=== PATIENT | male | born 1975 | race Caucasian/White ===

== ENCOUNTER 2017-09-18 09:11 | Emergency (ER) | payer MEDICAID ==
[~2017-09-18] VITALS: Ht 188 cm; Wt 134.7 kg
--- OUTSIDE RECORDS SUMMARY | ~2017-09-18 | XMS | Clinical Summary ---
Demographics + + + | Address | [address] | | | [place] [address] | + + + | Home Phone | | + + + | Preferred Language | Unknown | + + + | Marital Status | Single | + + + | Faith Affiliation | CHR | + + + [...] Team Providers + +------+ + | Care Title Vehicle Service Attendant Name | Role | Phone | + +------+ + | No Pcp Per Patient | PP | Unavailable | + +------+ + Source Comments AARON is fully live on both [facility] Ambulatory and [facility] InPatient.[facility] Allergies + + + + + + [...] + + + + + Current Medications No known medications Active Problems Not [...] Pressure | 134/78 | 12/28/2014 9:34 PM PDT | + + + + | Pulse | 58 | 12/28/2014 9:34 PM PDT | + + + + | Temperature | 36.8 C (98.2 F) | 12/28/2014 9:34 PM PDT | + + + + | Respiratory Rate | 16 | 12/28/2014 9:34 PM PDT | + + + + | Oxygen Saturation | 99% | 12/28/2014 9:34 PM PDT | + + + + | Inhaled Oxygen | - | - | | Concentration | | | + + + + | Weight | 124.3 kg (274 lb) | 12/28/2014 2:48 PM PDT | + + + + | Height | - | - | + + + + | Body Mass Index | - | - | + + + + Plan of Treatment + + + + + | Health Maintenance | Due Date | Last Done | Comments | + + + + + | INFLUENZA VACCINE | | | | | (FLU SHOT) | 7 | | | + + + + + Results Not on filefrom Last 3 Months"
--- OUTSIDE RECORDS SUMMARY | ~2017-09-18 | XMS | Clinical Summary ---
Demographics + + + | Address | [address] | | | [place] [address] | + + + | Home Phone | | + + + | Preferred Language | Unknown | + + + | Marital Status | Single | + + + | Episcopalian Affiliation | CHR | + + + [...] Team Providers + +------+ + | Care Push Connector Assembler Name | Role | Phone | + +------+ + | No Pcp Per Patient | PP | Unavailable | + +------+ + Source Comments AARON is fully live on both [facility] Ambulatory and [facility] InPatient.[facility] Allergies + + + + + [...]
[~2017-09-18 09:11] MED LIST: NORCO 5-325 TA1 EACH PO
[2017-09-18] MEDS ORDERED: TYLENOL325 MG PO (09:22)
[2017-09-18] MEDS ORDERED: IBUPROFEN200 M1 PO (09:23)
== END 2017-09-18 10:02 | disposition home or self-care (01) ==
LOC: ED 09:11
DX: S43.402A Unspecified sprain of left shoulder joint, initial encounter (principal); F17.200 Nicotine dependence, unspecified, uncomplicated; Z88.5 Allergy status to narcotic agent; X50.9XXA Other and unspecified overexertion or strenuous movements or postures, initial encounter; Y92.89 Other specified places as the place of occurrence of the external cause
CPT/HCPCS: 99282

== ENCOUNTER 2019-09-23 21:21 | Emergency (ER) | payer OTHER ==
[~2019-09-23] VITALS: Ht 188 cm; Wt 126.5 kg
[~2019-09-23 21:21] MED LIST changes: +IBUPROFEN200 M1 PO; +TYLENOL325 MG PO
== END 2019-09-23 23:01 | disposition home or self-care (01) ==
LOC: ED 21:21
DX: S93.402A Sprain of unspecified ligament of left ankle, initial encounter (principal); X50.9XXA Other and unspecified overexertion or strenuous movements or postures, initial encounter; F17.200 Nicotine dependence, unspecified, uncomplicated; Z88.5 Allergy status to narcotic agent
CPT/HCPCS: 73610; 99283-25

== ENCOUNTER 2019-11-09 19:22 | Emergency (ER) | payer SELFPAY ==
[~2019-11-09] VITALS: Ht 188 cm; Wt 134.7 kg
[2019-11-09] MEDS ORDERED: PENICILLIN V P500 MG PO (20:34)
== END 2019-11-09 20:42 | disposition home or self-care (01) ==
LOC: ED 19:22
DX: K02.9 Dental caries, unspecified (principal); F17.200 Nicotine dependence, unspecified, uncomplicated; Z88.5 Allergy status to narcotic agent
CPT/HCPCS: 99282

== ENCOUNTER 2019-11-23 13:12 | Emergency (ER) | payer BC ==
[~2019-11-23] VITALS: Ht 188 cm; Wt 134.7 kg
--- OUTSIDE RECORDS SUMMARY | ~2019-11-23 | XMS | Clinical Summary ---
Demographics + + + | Address | [address] | | | [place] [address] | + + + | Home Phone | | + + + | Preferred Language | Unknown | + + + | Marital Status | | + + + | Temple Affiliation | Unknown | + + + | Race | Unknown | + + + | Ethnic Group | Unknown | + + + Author + + + | Author | [employer] (Historical as of | | | 03-10-19) | + + + | Organization | [facility] [employer] (Historical as of | | | 03-10-19) | + + + | Address | Unknown | + + + | Phone | Unavailable | + + + Support + + +---------+ + | Name | Relationship | Address | Phone | + + +---------+ + | Dioni,Leticia | ECON | Unknown | | + + +---------+ + Care Team Providers + +------+ + | Care Complaint Clerk Name | Role | Phone | + +------+ + | Dr. Destinee | PP | Unavailable | + +------+ + Allergies + + + + + + | Active Allergy | Reactions | Severity | Noted | Comments | | | | | Date | | + + + + + + | Tramadol | Other (See Comments) | Medium | 03/14/20 | "breathing | | | | | 12 | problems" | + + + + + + Current Medications + + +-------+---------+------+------+-------+ | Prescription | Sig. | Disp. | Refills | Star | End | Statu | | | | | | t | Date | s | | | | | | Date | | | + + +-------+---------+------+------+-------+ | ibuprofen (ADVIL) | Take 200 mg by mouth | | | | | Activ | | 200 MG tablet | every 6 (six) hours | | | | | e | | | as needed for Pain. | | | | | | + + +-------+---------+------+------+-------+ Active Problems Not on file Family History + + +------+ + | Medical History | Relation | Name | Comments | + + +------+ + | Heart disease | Maternal | | | | | Grandfath | | | | | er | | | + + +------+ + + +------+--------+ + | Relation | Name | Status | Comments | + +------+--------+ + | Maternal Grandfather | | | | + +------+--------+ + Social History + +-------+ +--------+------+ | Tobacco Use | Types | Packs/Day | Years | Date | | | | | Used | | + +-------+ +--------+------+ | Current Every Day | | 1 | | | | Smoker | | | | | + +-------+ +--------+------+ + + | Tobacco Cessation: Ready to Quit: No | + + + + +---------+ + | Alcohol Use | Drinks/We | oz/Week | Comments | | | ek | | | + + +---------+ + | No | | | | + + +---------+ + + + + | Sex Assigned at | Date Recorded | | | | + + + | Not on file | | + + + Last Filed Vital Signs + + + + | Vital Sign | Reading | Time Taken | + + + + | Blood Pressure | 121/63 | 04/29/2017 6:59 PM PDT | + + + + | Pulse | 71 | 04/29/2017 6:59 PM PDT | + + + + | Temperature | 36.7 C (98.1 F) | 04/29/2017 3:07 PM PDT | + + + + | Respiratory Rate | 16 | 04/29/2017 6:59 PM PDT | + + + + | Oxygen Saturation | 98% | 04/29/2017 6:59 PM PDT | + + + + | Inhaled Oxygen | - | - | | Concentration | | | + + + + | Weight | 130.9 kg (288 lb 9.3 | 04/29/2017 3:07 PM PDT | | | oz) | | + + + + | Height | 188 cm (6' 2") | 02/11/2017 10:49 AM PDT | + + + + | Body Mass Index | 37.05 | 04/29/2017 3:07 PM PDT | + + + + Plan of Treatment Not on file Results Not on filefrom Last 3 Months Insurance + +--------+ +------+-------+---------+ | Payer | Benefi | Subscriber | Type | Phone | Address | | | t Plan | ID | | | | | | / | | | | | | | Group | | | | | + +--------+ +------+-------+---------+ | COMMERCIAL OTHER | COMMER | [id number] | | | | | | CIAL | | | | | | | GENERI | | | | | | | C PLAN | | | | | + +--------+ +------+-------+---------+ + +--------+ +--------+ + + | Guarantor Name | Accoun | Relation to | Date | Phone | Billing Address | | | t Type | Patient | of | | | | | | | | | | + +--------+ +--------+ + + | TOOTIE HERNANDES | Person | Self [birth year] Home: | [address] | | | al/[place] | | 1975 | [phone] [place] | | | trent | | | [phone] | + +--------+ +--------+ + +
--- OUTSIDE RECORDS SUMMARY | ~2019-11-23 | XMS | Encounter Summary ---
Demographics + + + | Address | [address] | | | [place] [address] | + + + | Home Phone | | + + + | Preferred Language | Unknown | + + + | Marital Status | Unknown | + + + | Mandaeism Affiliation | Unknown | + + + | Race | Unknown | + + + | Ethnic Group | Unknown | + + + Author + + + | Author | [facility] | | | and [place] | + + + | Organization | [facility] | | | and [place] | + + + | Address | Unknown | + + + | Phone | Unavailable | + + + Care Team Providers + +------+ + | Care Budget Clerk Name | Role | Phone | + +------+ + PCP | Unavailable | + +------+ + Encounter Details +--------+ + + + + | Date | Type | Department | Care Team | Description | +--------+ + + + + | 03/14/ | Hospital | [facility] | Conversion | Chest pain | | 2011 | Encounter | [facility] | Transaction, | | | | | CLINICAL DECISION | Provider Unknown | | | | | [address] | | | | | | [place], [place] | | | | | | [address] | Roseline Marino MD | | | | | [phone] | | | +--------+ + + + [...] on file | | + + + + + + + | Job Start Date | Occupation | Industry | + + + + | Not on file | Not on file | Not on file | + + + + + + + + | Travel History | Travel Start | Travel End | + + + + + + | No recent travel history available. | + + documented as of this encounter Progress Notes Conversion Transaction, Provider Unknown - 03/14/2012 5:00 PM PDTFormatting of this note m ight be different from the original. Progress Notes by Bailey Berry RN at 03/14/12 1700 Author: Bailey Berry RN Service: (none) Author Type: Registered Nurse Filed: 03/14/12 8377 Date of Service: 03/14/121699 Status: Signed Drag Car Racer: Bailey Berry RN (Registered Nurse) Pt up; rt groin stable c/ small amt old drainage to site; pt void; amb in [place] at 1600; pap ers signed; reviewed how to check heart rate; instructed pt to monitor his hr at home; repor t if s/s; pt to call for f/u in 2 weeks; pt states understanding; pt to d/c to main per w/c docume nted in this encounter Plan of Treatment Not [...] for possible closure device deployment. 5. A 6-Mauritian Mynx | | | closure device deployment [...] | | groin with 1% lidocaine. A 6-Mauritian vascular sheath was inserted in | | [...] | | sheath was pulled, and a 6-Mauritian Mynx closure device was deployed at | [...] Note | + + | Levar Redding - 03/17/2019 3:50 AM PDT | | | | PROCEDURES | | 1. Selective coronary angiography. | | 2. Left heart catheterization. | | 3. Left ventriculography. | | 4. Right femoral angiogram for possible closure device deployment. | | 5. A 6-Mauritian Mynx closure device deployment at the right [...] groin with 1% lidocaine. A | | 6-Mauritian vascular sheath was inserted in the right [...] sheath. The sheath was pulled, and a 6-Mauritian | | Mynx closure device was deployed [...]
--- OUTSIDE RECORDS SUMMARY | ~2019-11-23 | XMS | Encounter Summary ---
Demographics + + + | Address | [address] | | | [place] [address] | + + + | Home Phone | | + + + | Preferred Language | Unknown | + + + | Marital Status | Single | + + + | Mormonism Affiliation | CHR | + + + | Race | White | + + + | Ethnic Group | Not or | + + + Author + + + | Organization | Unknown | + + + | Address | Unknown | + + + | Phone | Unavailable | + + + Support + + +---------+ + | Name | Relationship | Address | Phone | + + +---------+ + | Leticia Wheatley | ECON | Unknown | | + + +---------+ + Care Team Providers + +------+ + | Care Marble Worker Name | Role | Phone | + +------+ + PCP | Unavailable | + +------+ + Encounter Details +--------+ + + + + | Date | Type | Department | Care Team | Description | +--------+ + + + + | 11/27/ | Results | | Other, Faculty | | | 1993 | Only | | [phone] | | +--------+ + + + + [...] | + +--------+ + + + | SAMMIE JACKSON), 2 | Routin | 11/27/1993 | | Results for this | | VIEWS | e | 1:45 PM | | procedure are in the | | | | PDT | | results section. | + +--------+ + + + | ANKLE, 3 VIEWS | Routin | 11/27/1993 | | Results for this | | | e | 1:45 PM | | procedure are in the | | | | PDT | | results section. | + +--------+ + + + documented in this encounter Results SAMMIE JACKSON), 2 VIEWS (11/27/1993 1:45 PM PDT) + + + + + + | Component | Value | Ref Range | Performed | Pathologist | | | | | At | Signature | + + + + + + | OS [facility] | Radiologist 1: JESUS, | | | | | (HEEL), 2 | SEYMOUR Bearden, | | | | | VIEWS | M.D.-Radiologist 2: | | | | | | EVANGELIST TORRES, | | | | | | M.DDANTE KOWALSKI | | | | | | | | | | | | | | | | | | [birth year] LEFT | | | | | | ANKLE 3 VIEWS, OS | | | | | | CALCIS 2 VIEWS: | | | | | | 11/27/93 at 1345 | | | | | | hours. Dictated: | | | | | | 11/30/93. FINDINGS: | | | | | | The bones are intact | | | | | | without evidence of | | | | | | fracture or | | | | | | focaldestruction. The | | | | | | visualized joint spaces | | | | | | are maintained. There | | | | | | isminimal osteophyte | | | | | | formation at the | | | | | | talonavicular joint | | | | | | space withoutassociated | | | | | | narrowing. No soft | | | | | | tissue abnormality can | | | | | | be delineated. | | | | | | IMPRESSION: Minimal | | | | | | degenerative changes at | | | | | | the talonavicular joint | | | | | | as described. END OF | | | | | | IMPRESSION: | | | | + + + + + + + + | Specimen | + + | | + + + + + | Narrative | Performed At | + + + | Ordered by RUDOLPH CORTEZ M.D. | | + + + + +---------+ + + | Performing | Address | City/State/Zipcode | Phone Number | | Organization | | | | + +---------+ + + | [facility] OF | | | | | RADIOLOGY | | | | + +---------+ + + ANKLE, 3 VIEWS (11/27/1993 1:45 PM PDT) + + + + + + | Component | Value | Ref Range | Performed | Pathologist | | | | | At | Signature | + + + + + + | ANKLE, 3 | Radiologist 1: JESUS, | | | | | VIEWS | SEYMOUR Bearden | | | | | | MMony-Radiologist 2: | | | | | | EVANGELIST TORRES | | | | | | MDANTE MARIE | | | | | | | | | | | | | | | | | | [birth year]- LEFT | | | | | | ANKLE 3 VIEWS, OS | | | | | | CALCIS 2 VIEWS: | | | | | | 11/27/93 at 1345 | | | | | | hours. Dictated: | | | | | | 11/30/93. FINDINGS: | | | | | | The bones are intact | | | | | | without evidence of | | | | | | fracture or | | | | | | focaldestruction. The | | | | | | visualized joint spaces | | | | | | are maintained. There | | | | | | isminimal osteophyte | | | | | | formation at the | | | | | | talonavicular joint | | | | | | space withoutassociated | | | | | | narrowing. No soft | | | | | | tissue abnormality can | | | | | | be delineated. | | | | | | IMPRESSION: Minimal | | | | | | degenerative changes at | | | | | | the talonavicular joint | | | | | | as described. END OF | | | | | | IMPRESSION: | | | | + + + + + + + + | Specimen | + + | | + + + + + | Narrative | Performed At | + + + | Ordered by RUDOLPH CORTEZ M.D. | | + + + + +---------+ + + | Performing | Address | City/State/Zipcode | Phone Number | | Organization | | | | + +---------+ + + | [facility] DEPARTMENT OF | | | | | RADIOLOGY | | | | + +---------+ + + documented in this encounter Visit Diagnoses Not on filedocumented in this encounter"
--- OUTSIDE RECORDS SUMMARY | ~2019-11-23 | XMS | Encounter Summary ---
Demographics + + + | Address | [address] | | | [place] [address] | + + + | Home Phone | | + + + | Preferred Language | Unknown | + + + | Marital Status | Single | + + + | Yazidi Affiliation | CHR | + + + | Race | White | + + + | Ethnic Group | Not or | + + + Author + + + | Author | [facility] | + + + | Organization | [facility] | + + + | Address | Unknown | + + + | Phone | Unavailable | + + + Support + + +---------+ + | Name | Relationship | Address | Phone | + + +---------+ + | Leticia Wheatley | ECON | Unknown | | + + +---------+ + Care Team Providers + +------+ + | Care Poultry Vaccinator Name | Role | Phone | + +------+ + | No Pcp Per Patient | PCP | Unavailable | + +------+ + Reason for Visit + + + | Reason | Comments | + + + | LBP - Low back pain | | + + + AUTH/CERT +--------+--------+ + + + + | Status | Reason | Specialty | Diagnoses / | Referred By | Referred To | | | | | Procedures | Contact | Contact | +--------+--------+ + + + + | Closed | | | | | | +--------+--------+ + + + + Encounter Details +--------+ + + + + | Date | Type | Department | Care Team | Description | +--------+ + + + + | 12/28/ | Emergency | [facility] Emergency | Elaine Godfrey, | | | 2014 | | Department [address] | MD [address] | | | | | [address] | [address] | | | | | [facility] | [address] | | | | | [place], [place] | Cristina Pollock [place], | | | | | [address] | [place] [address] | | | | | [phone] | [phone] | | | | | | | | +--------+ + + + + Social History + +-------+ +--------+------+ | Tobacco Use | Types | Packs/Day | Years | Date | | | | | Used | | + +-------+ +--------+------+ | Current Every Day | | | | | | Smoker | | | | | + +-------+ +--------+------+ + + | Tobacco Cessation: Ready to Quit: No | + + + + +---------+ + | Alcohol Use | Drinks/Week | oz/Week | Comments | + + +---------+ + | No [...] + + documented as of this encounter Last Filed Vital Signs + + + + + | Vital Sign | Reading | Time Taken | Comments | + + + + + | Blood Pressure | 134/78 | 12/28/2014 9:34 PM | | | | | PDT | | + + + + + | Pulse | 58 | 12/28/2014 9:34 PM | | | | | PDT | | + + + + + | Temperature | 36.8 C (98.2 F) | 12/28/2014 9:34 PM | | | | | PDT | | + + + + + | Respiratory Rate | 16 | 12/28/2014 9:34 PM | | | | | PDT | | + + + + + | Oxygen Saturation | 99% | 12/28/2014 9:34 PM | | | | | PDT | | + + + + + | Inhaled Oxygen | - | - | | | Concentration | | | | + + + + + | Weight | 124.3 kg (274 lb) | 12/28/2014 2:48 PM | | | | | PDT | | + + + + + | Height | - | - | | + + + + + | Body Mass Index | - | - | | + + + + + documented in this encounter Discharge Instructions Instructions Jero Peng MD - 12/28/2014 Thank you for your visit today. You were treated by Dr. Peng and Elaine Godfrey MD. We did not find any life threatening process that would require you to stay in the hospital. However, if you feel worse or are not improving, we are open 24 hours a day/7 days a week and would be happy to re-evaluate you. Continue taking your home medications unless otherwi se directed by us. If you have received any pain medicatiions or sedating medications - suc h as Ativan (lorazepam) or Valium (diazepam) - do not drive today. You can take ibuprofen 400mg every 6 hours for pain and take Flexeril as needed for spasm. It is important to stay active; do not stay in bed as this can end up making your pain even worse. You can try gentle exercise to start the rehabilitation process. You can also try hot or cold therapy - be alert for bailey, do not sleep on heat/cold sources, and use 15 sophie shiva on with 15 minutes off. Hot showers can also help. It is important that you continue your care with a primary care provider. Please contact y our primary care provider VICKI for follow-up. Please return to the Emergency Department if you are unable to walk, have a fever greater t perea 100.5 F, leg pains or continuing/worsening numbness/tingling, difficulty urinating, loss of urine or stool control, or any new or worsened symptoms or concerns. Please also return for signs of neurologic emergency, including for weakness, especially of one side of the body, or for difficulty walking, difficulty speaking including slurred spee ch or difficulty finding words, difficulty walking, vision changes including double vision o r loss of vision, spinning-type dizziness (vertigo), or numbness of one side of the body. We appreciate you choosing [facility] for your healthcare. Low Back Pain: Exercises Your Care Instructions Here are some examples of typical rehabilitation exercises for your condition. Start each e xercise slowly. Ease off the exercise if you start to have pain. Your doctor or physical therapist will tell you when you can start these exercises and whic h ones will work best for you. How to do the exercises Press-up Lie on your stomach, supporting your body with your forearms. Press your elbows down into the floor to raise your upper back. As you do this, relax yo ur stomach muscles and allow your back to arch without using your back muscles. As your pres s up, do not let your hips or pelvis come off the floor. Hold for 15 to 30 seconds, then relax. Repeat 2 to 4 times. Alternate arm and leg (bird dog) exercise Note: Do this exercise slowly. Try to keep your body straight at all times, and do not let one hip drop lower than the other. Start on the floor, on your hands and knees. Tighten your belly muscles. Raise one leg off the floor, and hold it straight out behind you. Be careful not to let your hip drop down, because that will twist your trunk. Hold for about 6 seconds, then lower your leg and switch to the other leg. Repeat 8 to 12 times on each leg. Over time, work up to holding for 10 to 30 seconds each time. If you feel stable and secure with your leg raised, try raising the opposite arm straigh t out in front of you at the same time. Slbn-zw-inail exercise Lie on your back with your knees bent and your feet flat on the floor. Bring one knee to your chest, keeping the other foot flat on the floor (or keeping the o ther leg straight, whichever feels better on your lower back). Keep your lower back pressed to the floor. Hold for at least 15 to 30 seconds. Relax, and lower the knee to the starting position. Repeat with the other leg. Repeat 2 to 4 times with each leg. To get more stretch, put your other leg flat on the floor while pulling your knee to you r chest. Curl-ups 1. Lie on the floor on your back with your knees bent at a 90-degree angle. Your feet shoul d be flat on the floor, about 12 inches from your buttocks. 2. Cross your arms over your chest. If this bothers your neck, try putting your hands behin d your neck (not your head), with your elbows spread apart. 3. Slowly tighten your belly muscles and raise your shoulder blades off the floor. 4. Keep your head in line with your body, and do not press your chin to your chest. 5. Hold this position for 1 or 2 seconds, then slowly lower yourself back down to the floor . 6. Repeat 8 to 12 times. Pelvic tilt exercise 1. Lie on your back with your knees bent. 2. "Brace" your stomach. This means to tighten your muscles by pulling in and imagining you r belly button moving toward your spine. You should feel like your back is pressing to the f severino and your hips and pelvis are rocking back. 3. Hold for about 6 seconds while you breathe smoothly. 4. Repeat 8 to 12 times. Heel dig bridging 1. Lie on your back with both knees bent and your ankles bent so that only your heels are d igging into the floor. Your knees should be bent about 90 degrees. 2. Then push your heels into the floor, squeeze your buttocks, and lift your hips off the f severino until your shoulders, hips, and knees are all in a straight line. 3. Hold for about 6 seconds as you continue to breathe normally, and then slowly lower your hips back down to the floor and rest for up to 10 seconds. 4. Do 8 to 12 repetitions. Hamstring stretch in doorway 1. Lie on your back in a doorway, with one leg through the open door. 2. Slide your leg up the wall to straighten your knee. You should feel a gentle stretch miriam n the back of your leg. 3. Hold the stretch for at least 15 to 30 seconds. Do not arch your back, point your toes, or bend either knee. Keep one heel touching the floor and the other heel touching the wall. 4. Repeat with your other leg. 5. Do 2 to 4 times for each leg. Hip flexor stretch 1. Kneel on the floor with one knee bent and one leg behind you. Place your forward knee ov er your foot. Keep your other knee touching the floor. 2. Slowly push your hips forward until you feel a stretch in the upper thigh of your rear l eg. 3. Hold the stretch for at least 15 to 30 seconds. Repeat with your other leg. 4. Do 2 to 4 times on each side. Wall sit 1. Stand with your back 10 to 12 inches away from a wall. 2. Lean into the wall until your back is flat against it. 3. Slowly slide down until your knees are slightly bent, pressing your lower back into the wall. 4. Hold for about 6 seconds, then slide back up the wall. 5. Repeat 8 to 12 times. Follow-up care is a haines part of your treatment and safety. Be sure to make and go to all ap pointments, and call your doctor if you are having problems. It's also a good idea to know y our test results and keep a list of the medicines you take. Where can you learn more? To learn more about "Low Back Pain: Exercises", log into your [employer]Stone account at [email or web address]. You can enter [id number] in the [employer] Library" search box. Not on PrimeStone? Review the [employer] section of your After Visit Summary for directions on manny abad to sign up. [id number] [employer]. Care instructions adapted under license by [facility]. This care instruction is for use with your licensed healthcar e professional. If you have questions about a medical condition or this instruction, always ask your healthcare professional. [employer] disclaims any warranty or liabili ty for your use of this information. Content Version: 10.3.524381; Current as of: March 04, 2014 Learning About Relief for Back Pain What is back tension and strain? Back strain happens when you overstretch, or pull, a muscle in your back. You may hurt your back in an accident or when you exercise or lift something. Most back pain will get better with rest and time. You can take care of yourself at home to help your back heal. What can you do first to relieve back pain? When you first feel back pain, try these steps: Walk. Take a short walk (10 to 20 minutes) on a level surface (no slopes, hills, or stai rs) every 2 to 3 hours. Walk only distances you can manage without pain, especially leg pain . Relax. Find a comfortable position for rest. Some people are comfortable on the floor or a medium-firm bed with a small pillow under their head and another under their knees. Some people prefer to lie on their side with a pillow between their knees. Don't stay in one posi tion for too long. Try heat or ice. Try using a heating pad on a low or medium setting, or take a warm show er, for 15 to 20 minutes every 2 to 3 hours. Or you can buy single-use heat wraps that last up to 8 hours. You can also try an ice pack for 10 to 15 minutes every 2 to 3 hours. You can use an ice pack or a bag of frozen vegetables wrapped in a thin towel. There is not strong evidence that either heat or ice will help, but you can try them to see if they help. You ma y also want to try switching between heat and cold. Take pain medicine exactly as directed. If the doctor gave you a prescription medicine for pain, take it as prescribed. If you are not taking a prescription pain medicine, ask your doctor if you can take an o dzi-lmc-rwihpcv medicine. What else can you do? Stretch and exercise. Exercises that increase flexibility may relieve your pain and make it easier for your muscles to keep your spine in a good, neutral position. And don't forget to keep walking. Do self-massage. You can use self-massage to unwind after work or school or to energize yourself in the morning. You can easily massage your feet, hands, or neck. Self-massage work s best if you are in comfortable clothes and are sitting or lying in a comfortable position. Use oil or lotion to massage bare skin. Reduce stress. Back pain can lead to a vicious kake: Distress about the pain tenses th e muscles in your back, which in turn causes more pain. Learn how to relax your mind and you r muscles to lower your stress. Where can you learn more? To learn more about "Learning About Relief for Back Pain", log into your [employer]Stone account at [email or web address]. You can enter [id number] in the [employer]flow Library" search box. Not on [employer]? Review the [employer] section of your After Visit Summary for directions on manny abad to sign up. [id number] [employer]. Care instructions adapted under license by [facility]. This care instruction is for use with your licensed healthcar e professional. If you have questions about a medical condition or this instruction, always ask your healthcare professional. [employer] disclaims any warranty or liabili ty for your use of this information. Content Version: 10.3.050109; Current as of: December 26, 2013 Back Pain: After Your Visit Your Care Instructions Back pain has many possible causes. It is often related to problems with muscles and ligame nts of the back. It may also be related to problems with the nerves, discs, or bones of the back. Moving, lifting, standing, sitting, or sleeping in an awkward way can strain the back. Sometimes you don't notice the injury until later. Arthritis is another common cause of vinod k pain. Although it may hurt a lot, back pain usually improves on its own within several weeks. Mos t people recover in 12 weeks or less. Using good home treatment and being careful not to str ess your back can help you feel better sooner. Follow-up care is a haines part of your treatment and safety. Be sure to make and go to all ap pointments, and call your doctor if you are having problems. It s also a good idea to know your test results and keep a list of the medicines you take. How can you care for yourself at home? Sit or lie in positions that are most comfortable and reduce your pain. Try one of these positions when you lie down: Lie on your back with your knees bent and supported by large pillows. Lie on the floor with your legs on the seat of a sofa or chair. Lie on your side with your knees and hips bent and a pillow between your legs. Lie on your stomach if it does not make pain worse. Do not sit up in bed, and avoid soft couches and twisted positions. Bed rest can help re lieve pain at first, but it delays healing. Avoid bed rest after the first day of back pain. Change positions every 30 minutes. If you must sit for long periods of time, take breaks from sitting. Get up and walk around, or lie in a comfortable position. Try using a heating pad on a low or medium setting for 15 to 20 minutes every 2 or 3 elier rs. Try a warm shower in place of one session with the heating pad. You can also try an ice pack for 10 to 15 minutes every 2 to 3 hours. Put a thin cloth b etween the ice pack and your skin. Take pain medicines exactly as directed. If the doctor gave you a prescription medicine for pain, take it as prescribed. If you are not taking a prescription pain medicine, ask your doctor if you can take an o occ-qdt-zeocchs medicine. Take short walks several times a day. You can start with 5 to 10 minutes, 3 or 4 times a day, and work up to longer walks. Walk on level surfaces and avoid hills and stairs until y our back is better. Return to work and other activities as soon as you can. Continued rest without activity is usually not good for your back. To prevent future back pain, do exercises to stretch and strengthen your back and stomac h. Learn how to use good posture, safe lifting techniques, and proper body mechanics. When should you call for help? Call your doctor now or seek immediate medical care if: You have new or worsening numbness in your legs. You have new or worsening weakness in your legs. (This could make it hard to stand up.) You lose control of your bladder or bowels. Watch closely for changes in your health, and be sure to contact your doctor if: Your pain gets worse. You are not getting better after 2 weeks. Where can you learn more? To learn more about "Back Pain: After Your Visit", log into your [employer]Stone account at [email or web address]. You can enter [id number] in the [employer] search box. Not on [employer]Stone? Review the [employer] section of your After Visit Summary for directions on manny abad to sign up. [id number] [employer]. Care instructions adapted under license by [facility]. This care instruction is for use with your licensed healthWIN [employer] Systems e professional. If you have questions about a medical condition or this instruction, always ask your healthcare professional. [employer] disclaims any warranty or liabili ty for your use of this information. Content Version: 10.3.873876; Current as of: December 26, 2013 documented in this encounter Plan of Treatment Not on filedocumented as of this encounter Procedures + +--------+ + + + | Procedure Name | Priori | Date/Time | Associated Diagnosis | Comments | | | ty | | | | + +--------+ + + + | UA DIPSTICK 10 DIP | Urgent | 12/28/2014 | | Results for this | | W/O MICRO | | 7:43 PM | | procedure are in the | | (AUTOMATED), POC | | PDT | | results section. | + +--------+ + + + documented in this encounter Results UA 10 DIP, POC (12/28/2014 7:43 PM PDT) + + + + + + | Component | Value | Ref Range | Performed | Pathologist | | | | | At | Signature | + + + + + + | COLOR (UA | Yellow | | [facility] - | | | DIP), POC | | | [facility] | | | | | | [facility] | | | | | | OF CARE | | | | | | TESTS | | + + + + + + | APPEARANCE | Clear | | [facility] - | | | (UA DIP), | | | [facility] | | | POC | | | [facility] | | | | | | OF CARE | | | | | | TESTS | | + + + + + + | LEUKOCYTES | Negative | Negative | [facility] - | | | (UA DIP), | | | [facility] | | | POC | | | [facility] | | | | | | OF CARE | | | | | | TESTS | | + + + + + + | NITRITES | Negative | Negative | [facility] - | | | (UA DIP), | | | [facility] | | | POC | | | [facility] | | | | | | OF CARE | | | | | | TESTS | | + + + + + + | UROBILINOGE | 0.2 | 0.2 - 1.0 | [facility] - | | | N (UA DIP), | | E.U./dL | [facility] | | | POC | | | [facility] | | | | | | OF CARE | | | | | | TESTS | | + + + + + + | PROTEIN (UA | Negative | Neg - Trace | [facility] - | | | DIP), POC | | mg/dL | [facility] | | | | | | [facility] | | | | | | OF CARE | | | | | | TESTS | | + + + + + + | PH (UA | 6.0 | 5.0 - 8.0 | [facility] - | | | DIP), POC | | | [facility] | | | | | | [facility] | | | | | | OF CARE | | | | | | TESTS | | + + + + + + | BLOOD (UA | Negative | Negative | [facility] - | | | DIP), POC | | | [facility] | | | | | | [facility] | | | | | | OF CARE | | | | | | TESTS | | + + + + + + | SPECIFIC | 1.025 | 1.005 - 1.030 | [facility] - | | | GRAVITY (UA | | | [facility] | | | DIP), POC | | | [facility] | | | | | | OF CARE | | | | | | TESTS | | + + + + + + | KETONES (UA | Negative | Negative mg/dL | [facility] - | | | DIP), POC | | | [facility] | | | | | | [place] [facility] | | | | | | OF CARE | | | | | | TESTS | | + + + + + + | BILIRUBIN | Negative | Negative | [facility] - | | | (UA DIP), | | | [facility] | | | POC | | | [facility] | | | | | | OF CARE | | | | | | TESTS | | + + + + + + | GLUCOSE (UA | Negative | Negative - | [facility] - | | | DIP), POC | | Trace mg/dL | [facility] | | | | | | [facility] | | | | | | OF CARE | | | | | | TESTS | | + + + + + + + + | Specimen | + + | Urine - Urine | + + + + + + + | Performing | Address | City/State/Zipcode | Phone Number | | Organization | | | | + + + + + | [facility] | [address] | [place], [place] | | | [facility] | [facility] | [address] | | | TESTS | | | | + + + + + documented in this encounter Visit Diagnoses + + | Diagnosis | + + | Midline low back pain, with sciatica presence unspecified - Primary | + + documented in this encounter
--- OUTSIDE RECORDS SUMMARY | ~2019-11-23 | XMS | Encounter Summary ---
Demographics + + + | Address | [address] | | | [place] [address] | + + + | Home Phone | | + + + | Preferred Language | Unknown | + + + | Marital Status | Unknown | + + + | Mandaen Affiliation | Unknown | + + + | Race | Unknown | + + + | Ethnic Group | Unknown | + + + Author + + + | Author | [facility] | | | and [place] | + + + | Organization | [facility] | | | and [place] | + + + | Address | Unknown | + + + | Phone | Unavailable | + + + Care Team Providers + +------+ + | Care Proof Load Mechanic Name | Role | Phone | + +------+ + PCP | Unavailable | + +------+ + Encounter Details +--------+ + + + + | Date | Type | Department | Care Team | Description | +--------+ + + + + | 02/11/ | Orders Only | [facility] | Conversion | | | 2017 | | CONVERSION [address]P [address] | Transaction, | | | | | [address] | Provider Unknown | | | | | DANI MARY | [phone] | | | | | [address] | | | | | | [phone] | | | +--------+ + + + [...]
--- OUTSIDE RECORDS SUMMARY | ~2019-11-23 | XMS | Encounter Summary ---
Demographics + + + | Address | [address] | | | [place] [address] | + + + | Home Phone | | + + + | Preferred Language | Unknown | + + + | Marital Status | Unknown | + + + | Quaker Affiliation | Unknown | + + + | Race | Unknown | + + + | Ethnic Group | Unknown | + + + Author + + + | Author | [facility] | | | and [place] | + + + | Organization | [facility] | | | and [place] | + + + | Address | Unknown | + + + | Phone | Unavailable | + + + Care Team Providers + +------+ + | Care Treater Helper Name | Role | Phone | + [...] | | | | DANI MARY | [phone] | | | | | [phone] | | | | | | [phone] | | | +--------+ + + + [...]
--- OUTSIDE RECORDS SUMMARY | ~2019-11-23 | XMS | Encounter Summary ---
Demographics + + + | Address | [address] | | | [place] [address] | + + + | Home Phone | | + + + | Preferred Language | Unknown | + + + | Marital Status | Unknown | + + + | Methodist Affiliation | Unknown | + + + | Race | Unknown | + + + | Ethnic Group | Unknown | + + + Author + + + | Author | [facility] | | | and Jaiana | + + + | Organization | [facility] | | | and Jaiana | + + + | Address | Unknown | + + + | Phone | Unavailable | + + + Care Team Providers + +------+ + | Care Ceo & Founder Name | Role | Phone | + +------+ + PCP | Unavailable | + +------+ + Encounter Details +--------+ + + + + | Date | Type | Department | Care Team | Description | +--------+ + + + + | 02/11/ | Emergency | [facility] | Yaniv Bermudez MD | Acute gout involving | | 2017 | | [facility] | [address] | toe of right foot, | | | | EMERGENCY CENTER | [place] [address] | unspecified cause; | | | | [address] | [phone] | Elevated blood | | | | [place], [place] | | pressure | | | | [address] | | | | | | [phone] | | | +--------+ + + + [...] + + + | Blood Pressure | 159/89 | 02/11/2017 10:49 AM | | | | | PDT | | + + + + + | Pulse | 74 | 02/11/2017 10:49 AM | | | | | PDT | | + + + + + | Temperature | 36.8 C (98.2 F) | 02/11/2017 10:49 AM | | | | | PDT | | + + + + + | Respiratory Rate | 18 | 02/11/2017 10:49 AM | | | | | PDT | | + + + + + | Oxygen Saturation | - | - | | + + + + + | Inhaled Oxygen | - | - | | | Concentration | | | | + + + + + | Weight | 135.8 kg (299 lb 6.1 | 02/11/2017 10:49 AM | | | | oz) | PDT | | + + + + + | Height | 188 cm (6' 2") | 02/11/2017 10:49 AM | | | | | PDT | | + + + + + | Body Mass Index | 38.44 | 02/11/2017 10:49 AM | | | | | PDT | | + + + + + documented in this encounter Medications at Time of Discharge + + + +---------+ + + | Medication | Sig | Dispensed | Refills | Start | End Date | | | | | | Date | | + + + +---------+ + + | ibuprofen (ADVIL, | Take 200 mg by mouth | | 0 | 02/12/20 | | | MOTRIN) 200 mg | every 6 (six) hours | | | 17 | | | tablet | as needed for Pain. | | | | | + + + +---------+ + + documented as of this encounter Plan of Treatment Not on filedocumented as of this encounter Procedures + +--------+ + + + | Procedure Name | Priori | Date/Time | Associated Diagnosis | Comments | | | ty | | | | + +--------+ + + + | XR TOE RIGHT 2 + VW | Routin | 02/11/2017 | | Results for this | | | e | 11:47 AM | | procedure are in the | | | | PDT | | results section. | + +--------+ + + + documented in this encounter Results XR Toe Right 2 + Vw (02/11/2017 11:47 AM PDT) + + | Specimen | + + | | + + + + + | Impressions | Performed At | + + + | 1. Normal right second toe. 2. Osteopenia. 3. Mild | | | structural abnormalities as noted above. | | + + + + + + | Narrative | Performed At | + + + | [facility] XR TOES RIGHT 02/11/2017 11:47 AM History: 42 | | | years. Male. Right second toe pain. Technique: AP view of | | | the foot with oblique and lateral views of the affected toe | | | Comparison exam: None. FINDINGS: Ossicles of the right second | | | toe appear intact, without fracture. Interphalangeal joint spaces | | | are normal. The remaining phalanges and metatarsal ossicles are | | | likewise negative for acute finding. There is mild metatarsus | | | varus and hallux valgus. Joint spaces are well-maintained throughout | | | the forefoot. Osteopenia is moderate. The soft tissues are | | | normal, without swelling or calcification. | | + + + + + | Procedure Note | + + | Vahid, Rad Conversion - 03/07/2019 10:01 PM GRIFFIN KAPLAN TOES RIGHT02/11/2017 | | 11:47 AM History: 42 years. Male. Right second toe pain. Technique: AP view of the | | foot with oblique and lateral views of the affected toe Comparison exam: None. | | FINDINGS: Ossicles of the right second toe appear intact, without fracture. | | Interphalangeal joint spaces are normal. The remaining phalanges and metatarsal | | ossicles are likewise negative for acute finding. There is mild metatarsus varus and | | hallux valgus. Joint spaces are well-maintained throughout the forefoot. Osteopenia is | | moderate. The soft tissues are normal, without swelling or calcification. IMPRESSION: | | 1. Normal right second toe.2. Osteopenia.3. Mild structural abnormalities as noted | | above. | |FINDINGS: Ossicles of the right second toe appear intact, without fracture. Interphalange al joint spaces are normal. The remaining phalanges and metatarsal ossicles are likewise ne gative for acute finding. | | | |There is mild metatarsus varus and hallux valgus. Joint spaces are well-maintained through out the forefoot. Osteopenia is moderate. The soft tissues are normal, without swelling or calcification. | | | |IMPRESSION: | |1. Normal right second toe. | |2. Osteopenia. | |3. Mild structural abnormalities as noted above. | | | | | + + documented in this encounter Visit Diagnoses + + | Diagnosis | + + | Acute gout involving toe of right foot, unspecified cause | + + | Elevated blood pressure Elevated blood pressure reading without diagnosis of | | hypertension | + + documented in this encounter
--- OUTSIDE RECORDS SUMMARY | ~2019-11-23 | XMS | Clinical Summary ---
Demographics + + + | Address | [address] | | | [place] [address] | + + + | Home Phone | | + + + | Preferred Language | Unknown | + + + | Marital Status | Single | + + + | Buddhist Affiliation | CHR | + + + | Race | White | + + + | Ethnic Group | Not or | + + + Author + + + | Author | [facility] | + + + | Organization | [facility] | + + + | Address | Unknown | + + + | Phone | Unavailable | + + + Support + + +---------+ + | Name | Relationship | Address | Phone | + + +---------+ + | Leticia Wheatley | ECON | Unknown | | + + +---------+ + Care Team Providers + +------+ + | Care Jigmaker Name | Role | Phone | + +------+ + | No Pcp Per Patient | PCP | Unavailable | + +------+ + Source Comments AARON is fully live on both [facility] and [facility] InPatient.[facility] Allergies + + + + + + | Active Allergy | Reactions | Severity | Noted | Comments | | | | | Date | | + + + + + + | Tramadol | Dyspnea | | 12/29/19 | | | | | | 15 | | + + + + + + | Hydrocodone-Acetamin | Rash | | 12/29/19 | | | ophen | | | 15 | | + + + + + + Medications No known medications Active Problems Not on file Social History + +-------+ +--------+------+ | Tobacco [...] recent travel history available. | + + Last Filed Vital Signs + [...] | | + + + + + Plan of Treatment + + + + + | Health Maintenance | Due Date | Last Done | Comments | + + + + + | Pneumococcal | | | | | vaccination (1 of 1 | 1 | | | | - PPSV23) | | | | + + + + + | Influenza (Flu) | | | | | vaccination (#1) | 9 | | | + + + + + Results Not on filefrom Last 3 Months"
--- OUTSIDE RECORDS SUMMARY | ~2019-11-23 | XMS | Clinical Summary ---
Demographics + + + | Address | [address] | | | [place] [address] | + + + | Home Phone | | + + + | Preferred Language | Unknown | + + + | Marital Status | Unknown | + + + | Jainism Affiliation | Unknown | + + + | Race | Unknown | + + + | Ethnic Group | Unknown | + + + Author + + + | Author | [facility] | | | and Jaiana | + + + | Organization | [facility] | | | and Jaiana | + + + | Address | Unknown | + + + | Phone | Unavailable | + + + Care Team Providers + +------+ + | Care Roll Sheeting Cutter Name | Role | Phone | + +------+ + PCP | Unavailable | + +------+ + Allergies [...] + + + + + + Medications + + + +---------+------+------+-------+ | Medication | Sig | Dispensed | Refills | Star | End | Statu | | | | | | t | Date | s | | | | | | Date | | | + + + +---------+------+------+-------+ | ibuprofen (ADVIL, | Take 200 mg by mouth | | 0 | 07/2 | | Activ | | MOTRIN) 200 mg | every 6 (six) hours | | | 1/20 | | e | | tablet | as needed for Pain. | | | 17 | | | + + + +---------+------+------+-------+ Active Problems Not on file Family History [...] | + + + + + | Vaccine: | | | | | Dtap/Tdap/Td (1 - | 6 | | | | Tdap) | | | | + + + + + | Vaccine: Influenza | | | | | (Season Ended) | 0 | | | + + + + + Results Not on filefrom Last 3 Months
--- OUTSIDE RECORDS SUMMARY | ~2019-11-23 | XMS | Encounter Summary ---
Demographics + + + | Address | [address] | | | [place] [address] | + + + | Home Phone | | + + + | Preferred Language | Unknown | + + + | Marital Status | Unknown | + + + | Anabaptist Affiliation | Unknown | + + + | Race | Unknown | + + + | Ethnic Group | Unknown | + + + Author + + + | Author | [facility] | | | and Jaiana | + + + | Organization | [facility] | | | and Jaiana | + + + | Address | Unknown | + + + | Phone | Unavailable | + + + Care Team Providers + +------+ + | Care Welding Machine Operator Submerged Arc Name | Role | Phone | + +------+ + PCP | Unavailable | + +------+ + Encounter Details +--------+ + + + + | Date | Type | Department | Care Team | Description | +--------+ + + + + | 04/29/ | Emergency | [facility] | Praveen Lau | Abdominal pain of | | 2017 | | MEDICAL CENTER | [address] | unknown etiology; | | | | EMERGENCY CENTER | [address] | Elevated blood | | | | [address] | [place], [place] | pressure reading | | | | [place], [place] | [address] | | | | | [address] | [phone] | | | | | [phone] | | | +--------+ + + + [...] | + + + | [facility] [address] ABDOMEN [...] Rad Conversion - 03/07/2019 10:01 PM PDT [facility]ES1975 42 years MaleCT | | ABDOMEN PELVIS W ENWYGQKA18/6/2017 6:33 PM INDICATION: Abdominal pain. COMPARISON: None. [...] + + + + + + | Clarity | CLEAR | | EXTERNAL | | | | | | LAB | | + + + + + + | Specific | 1.029 | 1.002 - 1.030 | EXTERNAL | | | [place], | | | LAB | | | [...] | | | Urine | performed at [facility];[address] | | LAB | | | | [address];[place] | | | | | | [address] | | | | + + + [...] + + + + + + | Red Blood | 4.99 | 4.20 - 5.70 | EXTERNAL | | | Cells | | M/uL | LAB | | | Counted | | | [...] | | | Basophils | performed at [facility];[address] | K/uL | LAB | | | | [address];[place] | | | | | | [address] | | | | + + + [...] EXTERNAL | | | | performed at [facility];[address] | | LAB | | | | [address];[place] | | | | | | [address] | | | | + + + [...] | | | | | | at [facility];[address] [place] [address] | | | | | | [facility];[place] [address] | | | | + + + [...] hypertension | + + documented in this encounter"
--- OUTSIDE RECORDS SUMMARY | ~2019-11-23 | XMS | Encounter Summary ---
Demographics + + + | Address | [address] | | | [place] [address] | + + + | Home Phone [...] Author | [facility] | | | and Jaiana | + + + | Organization | [facility] | | | and Jaiana | + + + | Address | Unknown | + + + | Phone | Unavailable | + + + Care Team Providers + +------+ + | Care Manager Nursing Name | Role | Phone | + +------+ + PCP | Unavailable | + +------+ + Encounter Details +--------+ + + + + | Date | Type | Department | Care Team | Description | +--------+ + + + + | 04/05/ | Hospital | [facility] | Liliane Palma | | | 2010 | Encounter | HOSPITAL GROUND | MD [address] | | | | | [facility] [address] [place] | [place] [address] | | | | | [place], [place] | [phone] | | | | | [address] | | | | | | [phone] | | | +--------+ + + + [...]
--- OUTSIDE RECORDS SUMMARY | ~2019-11-23 | XMS | Clinical Summary ---
Demographics + + + | Address | [address] | | | [place] [address] | + + + | Home Phone | | + + + | Preferred Language | Unknown | + + + | Marital Status | Unknown | + + + | Methodist Affiliation | Unknown | + + + | Race | Unknown | + + + | Ethnic Group | Unknown | + + + Author + + + | Author | [facility] | | | and Jaiana | + + + | Organization | [facility] | | | and Jaiana | + + + | Address | Unknown | + + + | Phone | Unavailable | + + + Care Team Providers + +------+ + | Care Transition Manager Name | Role | Phone | + [...]
--- OUTSIDE RECORDS SUMMARY | ~2019-11-23 | XMS | Encounter Summary ---
Demographics + + + | Address | [address] | | | [place] [address] | + + + | Home Phone | | + + + | Preferred Language | Unknown | + + + | Marital Status | Unknown | + + + | Religion Affiliation | Unknown | + + + | Race | Unknown | + + + | Ethnic Group | Unknown | + + + Author + + + | Author | [facility] | | | and Jaiana | + + + | Organization | [facility] | | | and Jaiana | + + + | Address | Unknown | + + + | Phone | Unavailable | + + + Care Team Providers + +------+ + | Care Veneer Press Operator Name | Role | Phone | + +------+ + PCP | Unavailable | + +------+ + Encounter Details +--------+ + + + + | Date | Type | Department | Care Team | Description | +--------+ + + + + | 04/29/ | Emergency | [facility] | Praveen Lau | Abdominal pain of | | 2017 | | MEDICAL CENTER | [address] | unknown etiology; | | | | EMERGENCY CENTER | [address] | Elevated blood | | | | [address] | [place], [place] | pressure reading | | | | [place], [place] | [address] | | | | | [address] | [phone] | | | | | [phone] | | | +--------+ + + + [...] years MaleCT | | ABDOMEN PELVIS W ETFLBYBD53/6/2017 6:33 PM INDICATION: Abdominal pain. COMPARISON: None. [...] - 1.030 | EXTERNAL | | | [place], | | | LAB | | | [...] | | | Urine | performed at [facility];[address] | | LAB | | | | [address];[place] | | | | | | [address] | | | | + + + [...] | | | Basophils | performed at [facility];[address] | K/uL | LAB | | | | [address];[place] | | | | | | [address] | | | | + + + [...] EXTERNAL | | | | performed at [facility];[address] | | LAB | | | | [address];[place] | | | | | | [address] | | | | + + + [...] | | | | | | at [facility];[address] [place] [address] | | | | | | [facility];[place] [address] | | | | + + + [...]
--- OUTSIDE RECORDS SUMMARY | ~2019-11-23 | XMS | Encounter Summary ---
Demographics + + + | Address | [address] | | | [place] [address] | + + + | Home Phone | | + + + | Preferred Language | Unknown | + + + | Marital Status | Single | + + + | Uatsdin Affiliation | CHR | + + + | Race | White | + + + | Ethnic Group | Not or | + + + Author + + + | Author | [facility] | + + + | Organization | [facility] | + + + | Address | Unknown | + + + | Phone | Unavailable | + + + Support + + +---------+ + | Name | Relationship | Address | Phone | + + +---------+ + | Leticia Wheatley | ECON | Unknown | | + + +---------+ + Care Team Providers + +------+ + | Care Web Engineer Name | Role | Phone | + [...] + + | 12/28/ | Emergency | [facility] Emergency | Elaine Godfrey, | | | 2014 | | Department [address] | MD [address] | | | | | [address] | [address] | | | | | [facility] | [address] | | | | | [place], [place] | [address] [address], | | | | | [address] | [place] [address] | | | | | [phone] | [phone] | | | | | | | [...] of the body. We appreciate you choosing [facility] for your healthcare. Low Back Pain: Exercises [...] front of you at the same time. Fbez-co-ifarf exercise Lie on your back with your [...] "Low Back Pain: Exercises", log into your appsplit account at [email or web address]. You can enter Z938 in the [employer] Library" search box. Not on appsplit? Review the ViewReplet section of your After Visit Summary for directions on manny abad to sign up. [id number] [employer]. Care instructions adapted under license by [facility]. This care instruction is for use with your licensed healthcar e professional. If you have questions about a medical condition or this instruction, always ask your healthcare professional. [employer] disclaims any warranty or liabili ty for your use of this information. Content Version: 10.3.276181; Current as of: March 04, 2014 Learning [...] doctor if you can take an o xgv-hla-auyuilg medicine. What else can you do? Stretch [...] Back pain can lead to a vicious kaltag: Distress about the pain tenses th e muscles in your back, which in turn causes more pain. Learn how to relax your mind and you r muscles to lower your stress. Where can you learn more? To learn more about "Learning About Relief for Back Pain", log into your appsplit account at [email or web address]. You can enter Q517 in the [employer] Library" search box. Not on appsplit? Review the appsplit section of your After Visit Summary for directions on manny abad to sign up. [id number] [employer]. Care instructions adapted under license by [facility]. This care instruction is for use with your licensed healthcar e professional. If you have questions about a medical condition or this instruction, always ask your healthcare professional. [employer] disclaims any warranty or liabili ty for your use of this information. Content Version: 10.3.310753; Current as of: December 26, 2013 Back [...] doctor if you can take an o cee-ilv-lyvktdp medicine. Take short walks several times a [...] Pain: After Your Visit", log into your appsplit account at [email or web address]. You can enter I594 in the [employer]pack" search box. Not on appsplit? Review the ViewReplet section of your After Visit Summary for directions on manny abad to sign up. [id number] [employer]. Care instructions adapted under license by [facility]. This care instruction is for use with your licensed healthNovogen e professional. If you have questions about a medical condition or this instruction, always ask your healthcare professional. [employer] disclaims any warranty or liabili ty for your use of this information. Content Version: 10.3.941605; Current as of: December 26, 2013 documented [...] Sis MARYLUCARLO | [address] | [place], [place] | | | [facility] | [facility] | [address] | | | TESTS | | | | + + + + + documented in this encounter Visit Diagnoses + + | Diagnosis | + + | Midline low back pain, with sciatica presence unspecified - Primary | + + documented in this encounter
--- OUTSIDE RECORDS SUMMARY | ~2019-11-23 | XMS | Encounter Summary ---
Demographics + + + | Address | [address] | | | [place] [address] | + + + | Home Phone | | + + + | Preferred Language | Unknown | + + + | Marital Status | Unknown | + + + | Pentecostal Affiliation | Unknown | + + + | Race | Unknown | + + + | Ethnic Group | Unknown | + + + Author + + + | Author | [facility] | | | and Jaiana | + + + | Organization | [facility] | | | and Jaiana | + + + | Address | Unknown | + + + | Phone | Unavailable | + + + Care Team Providers + +------+ + | Care Clam Bed Laborer Name | Role | Phone | + +------+ + PCP | Unavailable | + +------+ + Encounter Details +--------+ + + + + | Date | Type | Department | Care Team | Description | +--------+ + + + + | 02/11/ | Emergency | [facility] | Yaniv Bermudez MD | Acute gout involving | | 2017 | | [facility] | [address] | toe of right foot, | | | | EMERGENCY CENTER | [place] [address] | unspecified cause; | | | | [address] | [phone] | Elevated blood | | | | [place], [place] | | pressure | | | | [address] | | | | | | [phone] | | | +--------+ + + + [...]
--- OUTSIDE RECORDS SUMMARY | ~2019-11-23 | XMS | Encounter Summary ---
Demographics + + + | Address | [address] | | | [place] [address] | + + + | Home Phone | | + + + | Preferred Language | Unknown | + + + | Marital Status | Unknown | + + + | Latter-Day Affiliation | Unknown | + + + | Race | Unknown | + + + | Ethnic Group | Unknown | + + + Author + + + | Author | [facility] | | | and Jaiana | + + + | Organization | [facility] | | | and [place] | + + + | Address | Unknown | + + + | Phone | Unavailable | + + + Care Team Providers + +------+ + | Care Aircraft Riveter Name | Role | Phone | + +------+ + PCP | Unavailable | + +------+ + Encounter Details +--------+ + + + + | Date | Type | Department | Care Team | Description | +--------+ + + + + | 03/14/ | Hospital | [facility] | Conversion | Chest pain | | 2011 | Encounter | [facility] | Transaction, | | | | | CLINICAL DECISION | Provider Unknown | | | | | [address] | | | | | | [place], [place] | | | | | | [address] | Roseline Marino MD | | | | | [phone] | | | +--------+ + + + [...] (none) Author Type: Registered Nurse Filed: 03/14/12 [id number] Date of Service: 03/14/121699 Status: Signed Personal Computer Network Engineer: Bailey Berry RN (Registered Nurse) Pt [...] for possible closure device deployment. 5. A 6-Moldovan Mynx | | | closure device deployment [...] | | groin with 1% lidocaine. A 6-Moldovan vascular sheath was inserted in | | [...] | | sheath was pulled, and a 6-Moldovan Mynx closure device was deployed at | [...] closure device deployment. | | 5. A 6-Moldovan Mynx closure device deployment at the right [...] groin with 1% lidocaine. A | | 6-Moldovan vascular sheath was inserted in the right [...] sheath. The sheath was pulled, and a 6-Moldovan | | Mynx closure device was deployed [...]
--- OUTSIDE RECORDS SUMMARY | ~2019-11-23 | XMS | Clinical Summary ---
Demographics + + + | Address | [address] | | | [place] [address] | + + + | Home Phone | | + + + | Preferred Language | Unknown | + + + | Marital Status | Single | + + + | Yarsani Affiliation | CHR | + + + [...] Team Providers + +------+ + | Care Balance Assembler Name | Role | Phone | + +------+ + | No Pcp Per Patient | PCP | Unavailable | + +------+ + Source Comments AARON is fully live on both [facility] Ambulatory and [facility] InPatient.[facility] Allergies + + + + + [...]
--- OUTSIDE RECORDS SUMMARY | ~2019-11-23 | XMS | Encounter Summary ---
Demographics + + + | Address | [address] | | | [place] [address] | + + + | Home Phone | | + + + | Preferred Language | Unknown | + + + | Marital Status | Unknown | + + + | Pentecostal Affiliation | Unknown | + + + | Race | Unknown | + + + | Ethnic Group | Unknown | + + + Author + + + | Author | [facility] | | | and [place]iana | + + + | Organization | [facility] | | | and [place] | + + + | Address | Unknown | + + + | Phone | Unavailable | + + + Care Team Providers + +------+ + | Care Family Counselor Name | Role | Phone | + +------+ + PCP | Unavailable | + +------+ + Encounter Details +--------+ + + + + | Date | Type | Department | Care Team | Description | +--------+ + + + + | 04/05/ | Hospital | [facility] | Liliane Palma | | | 2010 | Encounter | HOSPITAL GROUND | [address] | | | | | [facility] [address] [place] | [place] [address] | | | | | [place], [place] | [phone] | | | | | [address] | | | | | | [phone] | | | +--------+ + + + [...]
--- OUTSIDE RECORDS SUMMARY | ~2019-11-23 | XMS | Clinical Summary ---
Demographics + + + | Address | [address] | | | [place] [address] | + + + | Home Phone | | + + + | Preferred Language | Unknown | + + + | Marital Status | | + + + | Yazidism Affiliation | Unknown | + + + | Race | Unknown | + + + | Ethnic Group | Unknown | + + + Author + + + | Author | [facility] (Historical as of | | | 03-10-19) | + + + | Organization | [facility] (Historical as of | | | 03-10-19) | + + + | Address | Unknown | + + + | Phone | Unavailable | + + + Support + + +---------+ + | Name | Relationship | Address | Phone | + + +---------+ + | Dioni,Leitcia | ECON | Unknown | | + + +---------+ + Care Team Providers + +------+ + | Care Ultrasonic Tester Name | Role | Phone | + [...] +------+-------+---------+ | COMMERCIAL OTHER | COMMER | [phone] | | | | | | CIAL [...] | trent | | | [phone] | [phone] | + +--------+ +--------+ + +
--- OUTSIDE RECORDS SUMMARY | ~2019-11-23 | XMS | Encounter Summary ---
Demographics + + + | Address | [address] | | | [place] [address] | + + + | Home Phone | | + + + | Preferred Language | Unknown | + + + | Marital Status | Unknown | + + + | Jew Affiliation | Unknown | + + + | Race | Unknown | + + + | Ethnic Group | Unknown | + + + Author + + + | Author | [facility] | | | and [place] | + + + | Organization | [facility] | | | and [place] | + + + | Address | Unknown | + + + | Phone | Unavailable | + + + Care Team Providers + +------+ + | Care Child Psychometrist Name | Role | Phone | + +------+ + PCP | Unavailable | + +------+ + Encounter Details +--------+ + + + + | Date | Type | Department | Care Team | Description | +--------+ + + + + | 04/05/ | Hospital | [facility] | Liliane Palma | | | 2010 | Encounter | HOSPITAL EMERGENCY | [address] | | | | | [address] | [address] [place], | | | | | [place], [place] | [place] [address] | | | | | [address] | [phone] | | | | | [phone] | | | +--------+ + + + [...]
--- OUTSIDE RECORDS SUMMARY | ~2019-11-23 | XMS | Encounter Summary ---
Demographics + + + | Address | [address] | | | [place] [address] | + + + | Home Phone | | + + + | Preferred Language | Unknown | + + + | Marital Status | Unknown | + + + | Restorationist Affiliation | Unknown | + + + | Race | Unknown | + + + | Ethnic Group | Unknown | + + + Author + + + | Author | [facility] | | | and [place] | + + + | Organization | [facility] | | | and [place] | + + + | Address | Unknown | + + + | Phone | Unavailable | + + + Care Team Providers + +------+ + | Care Journeyman Pipefitter Name | Role | Phone | + +------+ + PCP | Unavailable | + +------+ + Encounter Details +--------+ + + + + | Date | Type | Department | Care Team | Description | +--------+ + + + + | 04/05/ | Hospital | [facility] | Liliane Palma | | | 2010 | Encounter | HOSPITAL EMERGENCY | [address] | | | | | [address] | [address] [employer] [place], | | | | | [address], [place] | [place] [address] | | | | | [address] | [phone] | | | | | [phone] | | | +--------+ + + + [...]
--- OUTSIDE RECORDS SUMMARY | ~2019-11-23 | XMS | Encounter Summary ---
Demographics + + + | Address | [address] | | | [place] [address] | + + + | Home Phone | | + + + | Preferred Language | Unknown | + + + | Marital Status | Single | + + + | Denominational Affiliation | CHR | + + + [...] Team Providers + +------+ + | Care Routing Machine Operator Name | Role | Phone | + +------+ + PCP | Unavailable | + +------+ + Encounter Details +--------+ + + + + | Date | Type | Department | Care Team | Description | +--------+ + + + + | 11/27/ | Results | | Other, Faculty | | | 1993 | Only | | [phone] | | +--------+ + + + + [...] | | + +---------+ + + | [facility] DEPARTMENT OF | | | | | RADIOLOGY | | | | + +---------+ + + documented in this encounter Visit Diagnoses Not on filedocumented in this encounter"
[~2019-11-23 13:12] MED LIST changes: +PENICILLIN V P500 MG PO
--- OUTSIDE RECORDS SUMMARY | 2019-11-23 13:16 | XMS ---
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 Alisha has no Care Guidelines for this patient. Cristina VISIT COUNT (12 MO.) 2 [facility] - Alexis 2 [facility] - [address] [facility] TOTAL 7 NOTE: Visits indicate total known visits. ED/C VISIT TRACKING (12 MO.) 11/23/2019 13:[address] [facility] [place] TYPE: Emergency COMPLAINT: - EXTREMITY PAIN NON INJURY 11/09/2019 19:22 [facility] [place] TYPE: Emergency COMPLAINT: - DENTAL PAIN DIAGNOSES: - Dental caries, unspecified - Nicotine dependence, unspecified, uncomplicated - Allergy status to narcotic agent status - Other specified disorders of teeth and supporting structures 09/23/2019 21:22 [facility] TYPE: Emergency COMPLAINT: - ANKLE INJURY DIAGNOSES: - Nicotine dependence, unspecified, uncomplicated - Other and unspecified overexertion or strenuous movements or - Allergy status to narcotic agent status - Sprain of unspecified ligament of left ankle, initial encount 06/03/2019 15:50 [facility] TYPE: Emergency DIAGNOSES: - Radiculopathy, lumbar region - Elevated blood-pressure reading, without diagnosis of hyperte - Back Pain 03/08/2019 04:59 [facility] [place] TYPE: Emergency DIAGNOSES: - Unspecified sprain of left wrist, initial encounter - Wrist Pain - Hand Pain 03/06/2019 12:43 [facility] TYPE: Emergency DIAGNOSES: - Wrist Injury - Unspecified sprain of left wrist, initial encounter - wrist pain from fall 11/27/2018 16:27 [facility] [place] TYPE: Emergency DIAGNOSES: - Lower Extremity Issue - foot pain - Gout, unspecified INPATIENT VISIT TRACKING (12 MO.) No inpatient visits to display in this time frame [email or web address]
[2019-11-23] MEDS ORDERED: IBUPROFEN200 MG PO (13:34)
[2019-11-23] MEDS ORDERED: METHYLPREDNISOLO4 M1 PO (15:16)
[2019-11-23] MEDS ORDERED: COLCHICINE0.6 M1 PO (15:16)
[2019-11-23] MEDS ORDERED: OMEPRAZOLE20 MG PO (15:16)
--- NOTE | 2019-11-23 17:46 | EKG ---
[facility] [address] [place] [address] Signed Normal sinus rhythm Minimal voltage criteria for LVH, may be normal variant Borderline ECG No previous ECGs available Confirmed by URVASHI WEBB DO ([id number]) on 11/23/2019 5:46:32 PM Electronically Signed By: URVASHI WEBB DO 11/23/19 1746 PATIENT NAME: TOOTIE HERNANDES GEE Electrocardiogram DATE OF : 75 PHYSICIAN: URVASHI WEBB DO REPORT #: [id number] REPORT IS CONFIDENTIAL AND NOT TO BE RELEASED WITHOUT AUTHORIZATION
== END 2019-11-23 15:43 | disposition home or self-care (01) ==
LOC: ED 13:12
DX: M10.9 Gout, unspecified (principal); F17.200 Nicotine dependence, unspecified, uncomplicated; Z88.5 Allergy status to narcotic agent; Z79.899 Other long term (current) drug therapy
CPT/HCPCS: 80053; 84484; 85025; 93005; 93010; 96374; 96375; 99285-25; J1885; J2930

== ENCOUNTER 2020-01-16 09:28 | Emergency (ER) | payer BC ==
[~2020-01-16] VITALS: Ht 188 cm; Wt 134.7 kg
[~2020-01-16 09:28] MED LIST changes: +COLCHICINE0.6 M1 PO; +IBUPROFEN200 MG PO; +METHYLPREDNISOLO4 M1 PO; +OMEPRAZOLE20 MG PO
== END 2020-01-16 14:02 | disposition home or self-care (01) ==
LOC: ED 09:28
DX: R07.89 Other chest pain (principal); F17.200 Nicotine dependence, unspecified, uncomplicated; Z88.5 Allergy status to narcotic agent
CPT/HCPCS: 71046; 99284-25

== ENCOUNTER 2020-02-09 05:17 | Emergency (ER) | payer BC ==
[~2020-02-09] VITALS: Ht 188 cm; Wt 133.8 kg
--- OUTSIDE RECORDS SUMMARY | 2020-02-09 05:20 | XMS ---
PreManage Notification: TOOTIE HERNANDES Security Engraver Jewelry Events No recent Security Events currently on file CRITERIA MET - [facility] - 2 Visits in 30 Days CARE PROVIDERS There are no care providers on record at this time. Alisha has no Care Guidelines for this patient. Cristina VISIT COUNT (12 MO.) 1 [facility] [place] 2 [facility] [address] [facility] TOTAL 8 NOTE: Visits indicate total known visits. ED/C VISIT TRACKING (12 MO.) 02/09/2020 05:18 [facility] [place] TYPE: Emergency COMPLAINT: - WRIST PAIN 01/16/2020 09:29 [facility] [place] TYPE: Emergency COMPLAINT: - LUNGS HURT DIAGNOSES: - Nicotine dependence, unspecified, uncomplicated - Shortness of breath - Allergy status to narcotic agent status - Other chest pain 11/23/2019 13:13 [facility] [place] TYPE: Emergency COMPLAINT: - EXTREMITY PAIN NON INJURY DIAGNOSES: - Pain in right foot - Gout, unspecified - Allergy status to narcotic agent status - Other long goods drier (current) drug therapy - Nicotine dependence, unspecified, uncomplicated 11/09/2019 19:22 [facility] [place] TYPE: Emergency COMPLAINT: - DENTAL PAIN DIAGNOSES: - Dental caries, unspecified - Nicotine dependence, unspecified, uncomplicated - Allergy status to narcotic agent status - Other specified disorders of teeth and supporting structures 09/23/2019 21:[address] [facility] [place] TYPE: Emergency COMPLAINT: - ANKLE INJURY DIAGNOSES: - Nicotine dependence, unspecified, uncomplicated - Other and unspecified overexertion or strenuous movements or - Allergy status to narcotic agent status - Sprain of unspecified ligament of left ankle, initial encount 06/03/2019 15:50 [facility] [place] [place]: Emergency DIAGNOSES: - Radiculopathy, lumbar region - Elevated blood-pressure reading, without diagnosis of hyperte - Back Pain 03/08/2019 04:59 [facility] [place] TYPE: Emergency DIAGNOSES: - Unspecified sprain of left wrist, initial encounter - Wrist Pain - Hand Pain 03/06/2019 12:43 [facility] [place] TYPE: Emergency DIAGNOSES: - Wrist Injury - Unspecified sprain of left wrist, initial encounter - wrist pain from fall INPATIENT VISIT TRACKING (12 MO.) No inpatient visits to display in this time frame [email or web address]
[2020-02-09] MEDS ORDERED: COLCHICINE0.6 M1 PO (05:41)
== END 2020-02-09 05:50 | disposition home or self-care (01) ==
LOC: ED 05:17
DX: M10.9 Gout, unspecified (principal); F17.200 Nicotine dependence, unspecified, uncomplicated; Z88.5 Allergy status to narcotic agent
CPT/HCPCS: 99283

== ENCOUNTER 2020-04-02 16:09 | Emergency (ER) | payer BC ==
[~2020-04-02] VITALS: Ht 188 cm; Wt 122.0 kg
--- OUTSIDE RECORDS SUMMARY | ~2020-04-02 | XMS | Encounter Summary ---
Demographics + + + | Address | [address] | | | [place] [address] | + + + | Home Phone | | + + + | Preferred Language | Unknown | + + + | Marital Status | Unknown | + + + | Denominational Affiliation | Unknown | + + + | Race | White | + + + | Ethnic Group | Unknown | + + + Author + + + | Author | [facility] | | | and [place] | + + + | Organization | [facility] | | | and [place] | + + + | Address | Unknown | + + + | Phone | Unavailable | + + + Care Team Providers + +------+ + | Care Electrical Engineering Professor Name | Role | Phone | + +------+ + PCP | Unavailable | + +------+ + Encounter Details +--------+ + + + + | Date | Type | Department | Care Team | Description | +--------+ + + + + | 04/05/ | Hospital | [facility] | Liliane Palma | | | 2010 | Encounter | HOSPITAL GROUND | MD [address] | | | | | [facility] [address] [place], | | | | [address] | [place] [address] | | | | | [place], [place] | [phone] | | | | | [address] | | | | | | [phone] | | | +--------+ + + + + Social History + +-------+ +--------+------+ | Tobacco Use | Types | Packs/Day | Years | Date | | | | | Used | | + +-------+ +--------+------+ | Never Assessed | | | | | + +-------+ +--------+------+ + + + | Sex Assigned at | Date Recorded | | | | + + + | Not on file | | + + + documented as of this encounter Plan of Treatment Not on filedocumented as of this encounter Visit Diagnoses Not on filedocumented in this encounter"
--- OUTSIDE RECORDS SUMMARY | ~2020-04-02 | XMS | Encounter Summary ---
Demographics + + + | Address | [address] | | | [place] [address] | + + + | Home Phone | | + + + | Preferred Language | Unknown | + + + | Marital Status | Unknown | + + + | Sabianism Affiliation | Unknown | + + + | Race | White | + + + | Ethnic Group | Unknown | + + + Author + + + | Author | [facility] | | | and [place] | + + + | Organization | [facility] | | | and [place] | + + + | Address | Unknown | + + + | Phone | Unavailable | + + + Care Team Providers + +------+ + | Care Survey Questionnaire Designer Name | Role | Phone | + +------+ + PCP | Unavailable | + +------+ + Encounter Details +--------+ + + + + | Date | Type | Department | Care Team | Description | +--------+ + + + + | 03/14/ | Hospital | [facility] | Conversion | Chest pain | | 2011 | Encounter | [facility] | Transaction, | | | | | CLINICAL DECISION | Provider Unknown | | | | | [address] [facility] | | | | | | [place], [place] | | | | | | [address] | Roseline Marino MD | | | | | [phone] | | | +--------+ + + + [...] + + documented as of this encounter Progress Notes Conversion Transaction, Provider Unknown - 03/14/2012 5:00 PM PDTFormatting of this note m ight be different from the original. Progress Notes by Bailey Berry RN at 03/14/12 170 Author: Bailey Berry RN Service: (none) Author Type: Registered Nurse Filed: 03/14/12 1734 Date of Service: 03/14/121699 Status: Signed Entry Level Software Engineer: Bailey Berry RN (Registered Nurse) Pt up; rt groin stable c/ small amt old drainage to site; pt void; amb in calhonu at 1600; pap ers signed; reviewed how to check heart rate; instructed pt to monitor his hr at home; repor t if s/s; pt to call for f/u in 2 weeks; pt states understanding; pt to d/c to main per w/c docume nted in this encounter Consult Notes Roseline Marino MD - 03/14/2012 12:31 PM PDT Consult* by Roseline Marino MD at 03/14/12 1231 Author: Roseline Marino MD Service: (none) Author Type: Physician Filed: 03/14/12 1231 Date of Service: 03/14/12 1231 Status: Signed Entry Level Software Engineer: Roseline Marino MD (Physician) [facility] Service: Interventional Cardiology Pre-Operative History & Physical Interval Update There have been no significant clinical changes since the completion of the above H&P. ROSELINE MARINO MD 03/14/2012 12:31 PM *CORE MEASURES REMINDER: If the patient has a known or suspected infection prior to surger y, please add diagnosis to the problem list (consider: Infection 136.9). documente d in this encounter Miscellaneous Notes Op Note - Roseline Marino MD - 03/14/2012 12:31 PM PDTFormatting of this note might be diff erent from the original. Brief Op Note by Roseline Marino MD at 03/14/12 1231 Author: Roseline Marino MD Service: (none) Author Type: Physician Filed: 03/14/12 1232 Date of Service: 03/14/12 1231 Status: Signed Entry Level Software Engineer: Roseline Marino MD (Physician) [facility] Service: Interventional Cardiology Brief Op Note Pre-operative Diagnosis: Chest pain Post-operative Diagnosis: Same Procedure(s): cath Surgeon: ROSELINE MARINO MD Anesthesia: Local anesthesia Estimated Blood Loss: Minimal Other: Not applicable Indications: See pre-operative history and physical. Findings: Normal coronaries, normal EF Complications: none Condition: Stable See dictated operative report for full details. ROSELINE MARINO MD 03/14/2012 documente d in this encounter Plan of Treatment Not on filedocumented as of this encounter Procedures + +--------+ + + + | Procedure Name | Priori | Date/Time | Associated Diagnosis | Comments | | | ty | | | | + +--------+ + + + | CV CARDIAC PROCEDURE | Routin | 03/14/2012 | | Results for this | | | e | 12:35 PM | | procedure are in the | | | | PDT | | results section. | + +--------+ + + + documented in this encounter Results CV CARDIAC PROCEDURE (03/14/2012 12:35 PM PDT) + + | Specimen | + + | | + + + + + | Narrative | Performed At | + + + | | | | | | | PROCEDURES 1. Selective coronary angiography. 2. Left heart | | | catheterization. 3. Left ventriculography. 4. Right femoral | | | angiogram for possible closure device deployment. 5. A 6-Welsh Mynx | | | closure device deployment at the right arteriotomy site. | | | ESTIMATED BLOOD LOSS Less than 50 mL. INDICATIONS Mr. Crowley is a | | | 57-year-old gentleman who has been complaining of atypical | | | chest pain and had an abnormal stress test. DESCRIPTION OF | | | PROCEDURE The patient presents to the cardiac catheterization lab in | | | the fasting state. An informed consent was obtained from the patient | | | after explaining the risks and benefits of the procedure, as well as | | | alternative options. The right groin area was prepped and draped in | | | the usual sterile fashion. Local anesthesia was given to the right | | | groin with 1% lidocaine. A 6-Welsh vascular sheath was inserted in | | | the right femoral artery using the modified Seldinger technique. A | | | JL4 catheter was advanced over the wire under fluoroscopic guidance | | | and engaged selectively with the ostium of the left main coronary | | | artery. Contrast was injected and multiple angiograms were obtained | | | in different angles. The catheter was exchanged over the wire to a | | | JR4 catheter, which was engaged selectively with the ostium of the | | | right coronary artery. Contrast was injected and multiple angiograms | | | were obtained in different angles. The catheter was exchanged over | | | the wire to a pigtail catheter that was introduced into the left | | | ventricular cavity. A left ventriculogram was obtained in the | | | 30-degree ELIZABETH projection using 36 mL of contrast. The pigtail | | | catheter was then retrieved over the wire and a right femoral | | | angiogram was obtained via the side port of the vascular sheath. The | | | sheath was pulled, and a 6-Welsh Mynx closure device was deployed at | | | the right arteriotomy site successfully. Hemostasis was achieved in | | | the cardiac catheterization lab. The patient was transferred out of | | | the catheterization lab in stable condition. FINDINGS | | | HEMODYNAMICS Aortic pressure was 154/83 with a mean aortic pressure | | | of 106. Left ventricular pressure was 150/21 with a left ventricular | | | end-diastolic pressure of 21. There was no significant transaortic | | | pressure gradient on catheter pullback. CORONARY ANGIOGRAPHY 1. | | | Left main was normal. 2. The LAD was normal. 3. The left circumflex | | | was normal. 4. The RCA was dominant and normal. LEFT | | | VENTRICULOGRAM Left ventriculogram revealed normal left ventricular | | | systolic function with an ejection fraction of 60% with no regional | | | wall motion abnormalities noted on the ELIZABETH projection. CONCLUSION | | | 1. Angiographically normal coronary arteries. 2. Normal left | | | ventricular systolic function with ejection fraction of 60% and | | | no regional wall motion abnormalities noted in the right anterior | | | oblique projection. 3. Mildly elevated left ventricular | | | end-diastolic pressure. RECOMMENDATIONS 1. Medical therapy. 2. | | | Risk factor modification. Read by ROSELINE MARINO MD 03/15/2012 | | | 08:48 P | | | 2:26 PM | | + + + + + | Procedure Note | + + | Levar Redding Conversion - 03/17/2019 3:50 AM PDT | | | | PROCEDURES | | 1. Selective coronary angiography. | | 2. Left heart catheterization. | | 3. Left ventriculography. | | 4. Right femoral angiogram for possible closure device deployment. | | 5. A 6-Welsh Mynx closure device deployment at the right arteriotomy | | site. | | | | ESTIMATED BLOOD LOSS | | Less than 50 mL. | | | | INDICATIONS | | Mr. Crowley is a 57-year-old gentleman who has been complaining of | | atypical chest pain and had an abnormal stress test. | | | | DESCRIPTION OF PROCEDURE | | The patient presents to the cardiac catheterization lab in the fasting | | state. An informed consent was obtained from the patient after explaining | | the risks and benefits of the procedure, as well as alternative options. | | The right groin area was prepped and draped in the usual sterile fashion. | | Local anesthesia was given to the right groin with 1% lidocaine. A | | 6-Welsh vascular sheath was inserted in the right femoral artery using | | the modified Seldinger technique. A JL4 catheter was advanced over the | | wire under fluoroscopic guidance and engaged selectively with the ostium | | of the left main coronary artery. Contrast was injected and multiple | | angiograms were obtained in different angles. The catheter was exchanged | | over the wire to a JR4 catheter, which was engaged selectively with the | | ostium of the right coronary artery. Contrast was injected and multiple | | angiograms were obtained in different angles. The catheter was exchanged | | over the wire to a pigtail catheter that was introduced into the left | | ventricular cavity. A left ventriculogram was obtained in the 30-degree | | ELIZABETH projection using 36 mL of contrast. The pigtail catheter was then | | retrieved over the wire and a right femoral angiogram was obtained via the | | side port of the vascular sheath. The sheath was pulled, and a 6-Welsh | | Mynx closure device was deployed at the right arteriotomy site | | successfully. Hemostasis was achieved in the cardiac catheterization lab. | | The patient was transferred out of the catheterization lab in stable | | condition. | | | | FINDINGS | | | | HEMODYNAMICS | | Aortic pressure was 154/83 with a mean aortic pressure of 106. | | Left ventricular pressure was 150/21 with a left ventricular end-diastolic | | pressure of 21. | | There was no significant transaortic pressure gradient on catheter | | pullback. | | | | CORONARY ANGIOGRAPHY | | 1. Left main was normal. | | 2. The LAD was normal. | | 3. The left circumflex was normal. | | 4. The RCA was dominant and normal. | | | | LEFT VENTRICULOGRAM | | Left ventriculogram revealed normal left ventricular systolic function | | with an ejection fraction of 60% with no regional wall motion | | abnormalities noted on the ELIZABETH projection. | | | | CONCLUSION | | 1. Angiographically normal coronary arteries. | | 2. Normal left ventricular systolic function with ejection fraction of 60% | | and no regional wall motion abnormalities noted in the right anterior | | oblique projection. | | 3. Mildly elevated left ventricular end-diastolic pressure. | | | | RECOMMENDATIONS | | 1. Medical therapy. | | 2. Risk factor modification. | | | | Read by ROSELINE MARINO MD 03/15/2012 08:48 P | | | | | + + documented in this encounter Visit Diagnoses + + | Diagnosis | + + | Chest pain Chest pain, unspecified | + + documented in this encounter"
--- OUTSIDE RECORDS SUMMARY | ~2020-04-02 | XMS | Encounter Summary ---
Demographics + + + | Address | [address] | | | [place] [address] | + + + | Home Phone | | + + + | Preferred Language | Unknown | + + + | Marital Status | Unknown | + + + | Sikhism Affiliation | Unknown | + + + | Race | White | + + + | Ethnic Group | Unknown | + + + Author + + + | Author | [facility] | | | and [place] | + + + | Organization | [facility] | | | and [place] | + + + | Address | Unknown | + + + | Phone | Unavailable | + + + Care Team Providers + +------+ + | Care Dry Wall Finisher Name | Role | Phone | + +------+ + PCP | Unavailable | + +------+ + Encounter Details +--------+ + + + + | Date | Type | Department | Care Team | Description | +--------+ + + + + | 04/05/ | Hospital | [facility] | Liliane Palma | | | 2010 | Encounter | HOSPITAL EMERGENCY | [address] | | | | | [address] | [address] [place], | | | | | [place], [place] | [place] [address] | | | | | [address] | [phone] | | | | | [phone] | | | +--------+ + + + [...]
--- OUTSIDE RECORDS SUMMARY | ~2020-04-02 | XMS | Encounter Summary ---
Demographics + + + | Address | [address] | | | [place] [address] | + + + | Home Phone | | + + + | Preferred Language | Unknown | + + + | Marital Status | Unknown | + + + | Adventist Affiliation | Unknown | + + + | Race | White | + + + | Ethnic Group | Unknown | + + + Author + + + | Author | [facility] | | | and Jaiana | + + + | Organization | [facility] | | | and Jaiana | + + + | Address | Unknown | + + + | Phone | Unavailable | + + + Care Team Providers + +------+ + | Care Precinct Police Captain Name | Role | Phone | + +------+ + PCP | Unavailable | + +------+ + Encounter Details +--------+ + + + + | Date | Type | Department | Care Team | Description | +--------+ + + + + | 04/29/ | Emergency | [facility] | Praveen Lau | Abdominal pain of | | 2017 | | [facility]ICAL [facility]ENTER | [address] | unknown etiology; | | | | EMERGENCY CENTER | [address] | Elevated blood | | | | [address] | [place], [place] | pressure reading | | | | [place], [place] | [address] | | | | | [address] | [phone] | | | | | [phone] | | | +--------+ + + + [...] | Blood Pressure | 121/63 | 04/29/2017 7:00 PM | | | | | PDT | | + + + + + | Pulse | 71 | 04/29/2017 7:00 PM | | | | | PDT | | + + + + + | Temperature | 36.7 C (98.1 F) | 04/29/2017 7:00 PM | | | | | PDT | | + + + + + | Respiratory Rate | 16 | 04/29/2017 7:00 PM | | | | | PDT | | + + + + + | Oxygen Saturation | - | - | | + + + + + | Inhaled Oxygen | - | - | | | Concentration | | | | + + + + + | Weight | 130.9 kg (288 lb 9.3 | 04/29/2017 7:00 PM | | | | oz) | PDT | | + + + + + | Height | - | - | | + + + + + | Body Mass Index | 37.05 | 02/11/2017 10:49 AM | | | [...] + + documented as of this encounter ED Notes Conversion Transaction, Provider Unknown - 04/29/2017 7:01 PM PDTFormatting of this note m ight be different from the original. ED Notes by Kathleen Perez RN at 04/29/171900 Author: Kathleen Perez RN Service: Emergency Department Author Type: Registered Nurse Filed: 04/29/171901 Date of Service: 04/29/171900 Status: Signed Spot Cleaner: Kathleen Perez RN (Registered Nurse) Pt resting, texting. Does not appear to be in distress Kathleen Perez RN 04/29/171901 onver leyda Transaction, Provider Unknown - 04/29/2017 6:30 PM PDT ED Notes by Kathleen Perez RN at 04/29/171829 Author: Kathleen Perez RN Service: Emergency Department Author Type: Registered Nurse Filed: 04/29/171830 Date of Service: 04/29/171829 Status: Signed Spot Cleaner: Kathleen Perez RN (Registered Nurse) Pt in CT at this time Kathleen Perez RN 04/29/171830 onver leyda Transaction, Provider Unknown - 04/29/2017 4:35 PM PDT ED Notes by Dwayne Rajan RN at 04/29/171634 Author: Dwayne Rajan RN Service: (none) Author Type: Registered Nurse Filed: 04/29/171635 Date of Service: 04/29/171634 Status: Signed Spot Cleaner: Dwayne Rajan RN (Registered Nurse) Patient explains to be having R flank pain since last night. Believes he has a kidney stone . No complaints of N/V or hematuria. Dwayne Rajan RN 04/29/171635 tephe karen, Brannon Daniels PA-C - 04/29/2017 4:34 PM PDTFormatting of this note might be different from th e original. ED Provider Notes by Brannon Ch PA-C at 04/29/171633 Author: Brannon Ch PA-C Service: Emergency Department Author Type: Physician Asserin poseyt - Certified Filed: 04/29/172039 Date of Service: 04/29/171633 Status: Attested Spot Cleaner: Brannon Ch PA-C (Physician Manager Flight Operations - Certified) Cosigner: Praveen Lau DO at 04/30/17116 Attestation signed by Praveen Lau DO at 04/30/17116 I have reviewed the note and supervised the mid-level provider. Procedures [facility] EMERGENCY DEPARTMENT History of Present Illness Patient Identification Tootie Hernandes is a 42 y.o. male. Patient information was obtained from patient. History/Exam limitations: none. Patient presented to the Emergency Department by: Car Chief Complaint Chief Complaint Patient presents with Flank Pain right. began yesterday Dysuria "it hurts to go to the bathroom" The patient complains of right-sided flank pain. Onset of symptoms was yesterday, with a on and off course since that time. The symptoms are described to be of 6/10 severity. The pat am[place] also complains of dysuria. No care prior to arrival. 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 Pat america has never had a history of kidney stones in the past. Past Medical History Diagnosis Date Gout No past surgical history on file. Prior to Admission medications Medication Sig Start Date End Date Taking? Authorizing Provider ibuprofen (ADVIL) 200 MG tablet Take 200 mg by mouth every 6 (six) hours as needed for Pain . Historical Provider Allergies Allergen Reactions Tramadol Other (See Comments) "breathing problems" Social History Social History Marital status: Spouse name: N/A Number of children: N/A Years of education: N/A Occupational History Not on file. Social History Main Topics Smoking status: Current Every Day Smoker Packs/day: 1.00 Smokeless tobacco: Not on file Alcohol use No Drug use: Types: Marijuana Sexual activity: Not on file Other Topics Concern Not on file Social History Narrative No narrative on file Family History Problem Relation Age of Onset Heart disease Maternal Grandfather ROS Review of Systems Constitutional: Negative for: fever, chills, fatigue, sweats or weight loss Eyes: Negative for: decreased vision or irritated eyes Nose: Negative for: nosebleed Throat: Negative for: mouth sores Cardiovascular/Respiratory: Negative for: chest pain, shortness of breath, cough Gastrointestinal: Negative for: abdominal pain, vomiting, diarrhea, black or bloody stools Positive for: Right flank pain Genitourinary: Positive for: Dysuria Musculoskeletal: Negative for: myalgias and arthralgias Skin: Negative for: laceration or lesion Neuro and psych: Negative for: fainting, head injury, seizure, trouble walking Endocrine/Heme/Lymph: Negative for: swollen lymph nodes, easy bruising Physical Exam BP 143/78 (BP Location: Left upper arm) | Pulse 83 | Temp 98.1 F (36.7 C) (Temporal) | Resp 18 | Wt 130.9 kg (288 lb 9.3 oz) | SpO2 98% | BMI 37.05 kg/m Pulse Oximetry interpretation: Normal Elevated blood pressure General: Alert, in no apparent distress Eyes: Normal inspection, pupils equal and round, non-icteric ENT: Ears normal Nose normal Pharynx normal Neck: Normal inspection Supple No lymphadenopathy No meningismus Cardiovascular: Rate and rhythm normal No murmurs Respiratory: Breath sounds normal bilaterally Abdomen: Soft, right flank tenderness, no pain over McBurney's point, non-distended No guarding or rebound Genitourinary: Deferred Rectal exam: Deferred Back: Right sided CVAT Skin: Color normal Warm and dry No rash Neuro: No motor deficit No sensory deficit Normal gait ED Course Medical Decision Making and Emergency Department Course ED Department Course 1634- I examined patient. This 42-year-old male presents emergency Department with right co licky flank pain started last night with associated nausea. DDx Includes renal/urolithiasis, urinary tract infection, nephritis, appendicitis, cholecystitis, cholelithiasis, hepatitis, SBO, diverticulitis, versus other. Patient denies fever, chills, vomiting, diarrhea, consti pation. Labs, treat symptomatically, and reassess. Patient was found to have elevated blood pressure during this ED visit. This is generally difficult to interpret in the ED setting as patients are usual anxious, in pain, etc. Howev er, it is not felt to be an emergent problem at this point, and any workup regarding the kimberly vated blood pressure is unremarkable. The patient was encouraged to f/u with their PCP rega rding their elevated blood pressure. 1837- urinalysis resulted. 6-10 RBC, 3-5 WBC,11-15 epithelial, no clear evidence of urinar y tract infection, or hematuria given somewhat contaminated specimen. Blood work shows no l eukocytosis, WBC is 9.54, mildly elevated alk phos at 126. Liver, kidney, pancreas function s within normal limits. Discussed results of patient's. Patient states symptoms improved af ter Toradol. Will await CT. 1848- CT is unremarkable for acute abdominal pathology. There is a anterior wedge andrew leyda fracture, age indeterminate, of L2 which pat relates he broke 10 years ago. Patient is resting comfortably scroll going through his itzel phone. I discussed these results with the patient. He feels comfortable with discharge home. Advised Tylenol, ibuprofen as needed for pain, and will prescribe Zofran for nausea. The patient is afebrile and nontoxic appearing at this time, and has remained stable throug hout the visit in the emergency department. I explained what will constitute a return visit emergency department. All questions were sought and answered. The patient expressed verba l understanding and agreed to treatment plan. Dictation software, GooodJob, is used. Sound-alike errors may be present. If there is any steff bt, please refer to provider for clarification. Records Reviewed Old medical records. Nursing notes. Labs & Radiology Results Laboratory Evaluation Results Procedure Component Value Ref Range Date/Time Urinalysis (reflex to micro/reflex to culture) [] (Abnormal) Collected: 04/29 Order Status: Completed Specimen: Urine, Clean Catch Updated: 04/29/17 180 COLOR UA YELLOW CLARITY CLEAR Specific [place], UA 1.029 1.002 - 1.030 LEUKOCYTE ESTERASE NEGATIVE NEGATIVE NITRITE NEGATIVE NEGATIVE UROBILINOGEN NORMAL <1.1 mg/dL PROTEIN NEGATIVE NEGATIVE mg/dL PH,URINE 5.0 5.0 - 8.0 BLOOD MODERATE (A) NEGATIVE KETONES TRACE (A) NEGATIVE mg/dL BILIRUBIN NEGATIVE NEGATIVE GLUCOSE NEGATIVE NEGATIVE mg/dL WBC 3-5 0 - 5 /hpf RBC 6-10 0 - 2 /hpf BACTERIA 1+ (A) NONE SEEN EPITHELIAL 11-15 /lpf Mucus, UA 1+ Comprehensive metabolic panel [] (Abnormal) Collected: 04/29/171652 Order Status: Completed Specimen: Blood Updated: 04/29/171736 SODIUM 139 135 - 145 mmol/L POTASSIUM 4.0 3.5 - 4.9 mmol/L CHLORIDE 105 99 - 109 mmol/L CO2 25 23 - 32 mmol/L ANION GAP AGAP 13 5 - 20 mmol/L GLUCOSE 93 65 - 99 mg/dL BUN 24 8 - 25 mg/dL CREATININE 1.0 0.70 - 1.30 mg/dL BUN/CREAT 24 CALCIUM 8.7 8.5 - 10.5 mg/dL TOTAL PROTEIN 7.7 6.3 - 8.2 g/dL Albumin 3.7 3.6 - 5.0 g/dL GLOBULIN 3.9 1.3 - 4.9 g/dL A/G 1.0 1.0 - 2.4 TBIL 0.2 0.1 - 1.5 mg/dL ALK PHOS 126 (H) 35 - 115 U/L AST 23 10 - 45 U/L ALT 59 10 - 65 U/L EGFR >60 >60 mL/min/1.73m2 Lipase [] Collected: 04/29/171652 Order Status: Completed Specimen: Blood Updated: 04/29/177 LIPASE 98 73 - 393 U/L CBC with differential [] Collected: 04/29/171652 Order Status: Completed Specimen: Blood Updated: 10/06/17 1713 WBC 9.54 3.80 - 11.00 K/uL RBC 4.99 4.20 - 5.70 M/uL HGB 15.8 13.2 - 17.0 g/dL HCT 45.6 39.0 - 50.0 % MCV 91.4 80.0 - 100.0 fl MCH 31.7 27.0 - 34.0 pg MCHC 34.6 32.0 - 35.5 g/dL RDW SD 43.8 37 - 53 fl PLT 207 150 - 400 K/uL MPV 8.5 fl DIFF TYPE AUTOMATED NEUTROPHILS 61.67 % LYMPHOCYTES 28.94 % MONOCYTES 6.70 % EOSINOPHILS 1.77 % BASOPHILS 0.92 % NEUTROPHILS ABS 5.89 1.90 - 7.40 K/uL LYMPHOCYTES ABS 2.76 1.00 - 3.90 K/uL MONOCYTES ABS 0.64 0.00 - 0.80 K/uL EOSINOPHILS ABS 0.17 0.00 - 0.50 K/uL BASOPHILS ABS 0.09 0.00 - 0.10 K/uL Radiology and EKG Evaluation Imaging Results CT abdomen pelvis with contrast (Final result) Result time 04/29/17 18:48:35 Final result by Tio Castillo MD (04/29/17 18:48:35) Impression: 1. No acute abnormality of the abdomen or pelvis. Appendix is normal. Gallbladder is norm al. Pancreas is normal. Kidneys are normal. 2. Hepatic steatosis. No focal hepatic masses. 3. Anterior wedge compression fracture at L2 of indeterminate age with anterior vertebral body height loss of approximately 50%, no acute fracture. Narrative: TOOTIE HERNANDES [address] ABDOMEN PELVIS W CONTRAST 04/29/2017 6:33 PM INDICATION: Abdominal pain. COMPARISON: None. TECHNIQUE: 5-mm axial images were acquired through the abdomen and pelvis with IV contrast Oral Contrast: Readi-Cat. Automated exposure control done to minimize dose. IV contrast: 100 mL Isovue-300 FINDINGS: Mild left basilar dependent atelectasis. Partially visualized calcified para-aortic node ad jacent to the thoracic aorta (3/), likely from prior granulomatous disease. Hepatic steatosis. No focal hepatic mass. There is focal fatty sparing surrounding the blad rosita fossa. Small calcified granuloma of the spleen (3/27). Adrenal glands, pancreas, distal esophagus and stomach are normal. Bilateral kidneys are no rmal. No hydronephrosis or hydroureter. No colonic wall thickening. No pericolonic fat stranding. Appendix is normal. No small trina l dilation. No adjacent mesenteric edema. No retroperitoneal, pelvic or inguinal adenopathy. Anterior vertebral body height loss at L2 consistent with wedge compression fracture with a nterior vertebral body height loss of approximately 50%. Superior endplate degenerative scle rosis of T11. Degenerative sclerosis of the inferior T12 endplate. Vacuum disc phenomenon of the lower thoracic spine intervertebral discs. Diagnosis & Disposition ED Diagnoses Final diagnoses Abdominal pain of unknown etiology Elevated blood pressure reading Disposition: ED Disposition ED Disposition Condition Comment Discharge Stable Follow-up Information Follow up With Specialties Details Why Contact [facility] Schedule an appointment as soon as possible for a vi sit Please establish with PCP for appropriate care and follow-up [address] [facility] [address] [facility] Emergency Department Emergency Medicine If symptoms worsen [address] [facility] [address] Discharge Medications: Discharge Medication List as of 04/29/2017 7:09 PM START taking these medications Details ondansetron (ZOFRAN-ODT) 4 MG disintegrating tablet Take 1 tablet by mouth every 8 (eight) hours as needed for Nausea for up to 7 days., Starting Tue04/29/2017, Until Tue05/06/2017, Print Brannon Ch PA-C 04/29/172039 Praveen Lau DO 04/30/17 0117 onversion Transa ction, Provider Unknown - 04/29/2017 4:20 PM PDT ED Notes by Kathleen Perez RN at 04/29/171619 Author: Kathleen Perez RN Service: (none) Author Type: Registered Nurse Filed: 04/29/171619 Date of Service: 04/29/171619 Status: Signed Spot Cleaner: Kathleen Perez RN (Registered Nurse) Bed: [facility] Expected date: Expected time: Means of arrival: Comments: Ready for pt Gerieugene Urbano RN 04/29/17 1970 docume nted in this encounter Plan of Treatment Not on filedocumented as of this encounter Procedures + +--------+ + + + | Procedure Name | Priori | Date/Time | Associated Diagnosis | Comments | | | ty | | | | + +--------+ + + + | CT ABDOMEN PELVIS W | Routin | 04/29/2017 | | Results for this | | CONTRAST | e | 6:33 PM | | procedure are in the | | | | PDT | | results section. | + +--------+ + + + | URINALYSIS, REFLEX | Routin | 04/29/2017 | | Results for this | | MICROSCOPIC AND/OR | e | 5:48 PM | | procedure are in the | | CULTURE | | PDT | | results section. | + +--------+ + + + | EXTERNAL LAB: CBC | Routin | 04/29/2017 | | Results for this | | | e | 4:53 PM | | procedure are in the | | | | PDT | | results section. | + +--------+ + + + | LIPASE | Routin | 04/29/2017 | | Results for this | | | e | 4:53 PM | | procedure are in the | | | | PDT | | results section. | + +--------+ + + + | COMPREHENSIVE | Routin | 04/29/2017 | | Results for this | | METABOLIC PANEL | e | 4:53 PM | | procedure are in the | | | | PDT | | results section. | + +--------+ + + + documented in this encounter Results CT Abdomen Pelvis w Contrast (04/29/2017 6:33 PM PDT) + + | Specimen | + + | | + + + + + | Impressions | Performed At | + + + | 1. No acute abnormality of the abdomen or pelvis. Appendix is | | | normal. Gallbladder is normal. Pancreas is normal. Kidneys are normal. | | | 2. Hepatic steatosis. No focal hepatic masses. 3. Anterior | | | wedge compression fracture at L2 of indeterminate age with anterior | | | vertebral body height loss of approximately 50%, no acute fracture. | | | | | + + + + + + | Narrative | Performed At | + + + | TOOTIE HERNANDES [address] ABDOMEN PELVIS W CONTRAST | | | 04/29/2017 6:33 PM INDICATION: Abdominal pain. COMPARISON: | | | None. TECHNIQUE: 5-mm axial images were acquired through the | | | abdomen and pelvis with IV contrast Oral Contrast: Readi-Cat. | | | Automated exposure control done to minimize dose. IV contrast: 100 mL | | | Isovue-300 FINDINGS: Mild left basilar dependent atelectasis. | | | Partially visualized calcified para-aortic node adjacent to the | | | thoracic aorta (09/22), likely from prior granulomatous disease. | | | Hepatic steatosis. No focal hepatic mass. There is focal fatty sparing | | | surrounding the bladder fossa. Small calcified granuloma of the | | | spleen (10/18). Adrenal glands, pancreas, distal esophagus and | | | stomach are normal. Bilateral kidneys are normal. No hydronephrosis or | | | hydroureter. No colonic wall thickening. No pericolonic fat | | | stranding. Appendix is normal. No small bowel dilation. No adjacent | | | mesenteric edema. No retroperitoneal, pelvic or inguinal | | | adenopathy. Anterior vertebral body height loss at L2 consistent | | | with wedge compression fracture with anterior vertebral body height | | | loss of approximately 50%. Superior endplate degenerative sclerosis of | | | T11. Degenerative sclerosis of the inferior T12 endplate. Vacuum | | | disc phenomenon of the lower thoracic spine intervertebral discs. | | + + + + + | Procedure Note | + + | Vahid, Rad Conversion - 03/07/2019 10:01 PM PDT EDCLIFF HERNANDES1975 42 years MaleCT | | ABDOMEN PELVIS W XLAUUKDX47/6/2017 6:33 PM INDICATION: Abdominal pain. COMPARISON: None. | | TECHNIQUE:5-mm axial images were acquired through the abdomen and pelvis with IV | | contrastOral Contrast: Readi-Cat. Automated exposure control done to minimize dose.IV | | contrast: 100 mL Isovue-300 FINDINGS:Mild left basilar dependent atelectasis. Partially | | visualized calcified para-aortic node adjacent to the thoracic aorta (09/22), likely from | | prior granulomatous disease. Hepatic steatosis. No focal hepatic mass. There is focal | | fatty sparing surrounding the bladder fossa. Small calcified granuloma of the spleen | | (10/18). Adrenal glands, pancreas, distal esophagus and stomach are normal. Bilateral | | kidneys are normal. No hydronephrosis or hydroureter. No colonic wall thickening. No | | pericolonic fat stranding. Appendix is normal. No small bowel dilation. No adjacent | | mesenteric edema. No retroperitoneal, pelvic or inguinal adenopathy. Anterior vertebral | | body height loss at L2 consistent with wedge compression fracture with anterior | | vertebral body height loss of approximately 50%. Superior endplate degenerative | | sclerosis of T11. Degenerative sclerosis of the inferior T12 endplate. Vacuum disc | | phenomenon of the lower thoracic spine intervertebral discs. IMPRESSION: 1. No acute | | abnormality of the abdomen or pelvis. Appendix is normal. Gallbladder is normal. | | Pancreas is normal. Kidneys are normal.2. Hepatic steatosis. No focal hepatic masses.3. | | Anterior wedge compression fracture at L2 of indeterminate age with anterior vertebral | | body height loss of approximately 50%, no acute fracture. | | | |Adrenal glands, pancreas, distal esophagus and stomach are normal. Bilateral kidneys are no rmal. No hydronephrosis or hydroureter. | | | |No colonic wall thickening. No pericolonic fat stranding. Appendix is normal. No small trina l dilation. No adjacent mesenteric edema. | | | |No retroperitoneal, pelvic or inguinal adenopathy. | | | |Anterior vertebral body height loss at L2 consistent with wedge compression fracture with a nterior vertebral body height loss of approximately 50%. Superior endplate degenerative scle rosis of T11. Degenerative sclerosis of the inferior T12 endplate. | |Vacuum disc phenomenon of the lower thoracic spine intervertebral discs. | | | |IMPRESSION: | |1. No acute abnormality of the abdomen or pelvis. Appendix is normal. Gallbladder is nancy l. Pancreas is normal. Kidneys are normal. | |2. Hepatic steatosis. No focal hepatic masses. | |3. Anterior wedge compression fracture at L2 of indeterminate age with anterior vertebral body height loss of approximately 50%, no acute fracture. | | | | | + + Urinalysis, Reflex Microscopic and/or Culture (04/29/2017 5:48 PM PDT) + + + + + + | Component | Value | Ref Range | Performed | Pathologist | | | | | At | Signature | + + + + + + | Color | YELLOW | | EXTERNAL | | | | | | LAB | | + + + + + + | Clarity, | CLEAR | | EXTERNAL | | | Urine | | | LAB | | + + + + + + | Specific | 1.029 | 1.002 - 1.030 | EXTERNAL | | | [place], | | | LAB | | | Urine | | | | | + + + + + + | Leukocyte | NEGATIVE | | EXTERNAL | | | Esterase, | | | LAB | | | Urine | | | | | + + + + + + | Nitrite, | NEGATIVE | | EXTERNAL | | | Urine | | | LAB | | + + + + + + | Urobilinoge | NORMAL | mg/dL | EXTERNAL | | | n, Urine | | | LAB | | + + + + + + | Protein, | NEGATIVE | mg/dL | EXTERNAL | | | Urine | | | LAB | | + + + + + + | pH, Urine | 5.0 | 5.0 - 8.0 | EXTERNAL | | | | | | LAB | | + + + + + + | Blood, | MODERATE (A) | | EXTERNAL | | | Urine | | | LAB | | + + + + + + | Ketones | TRACE (A) | mg/dL | EXTERNAL | | | | | | LAB | | + + + + + + | Bilirubin, | NEGATIVE | | EXTERNAL | | | Urine | | | LAB | | + + + + + + | Glucose, | NEGATIVE | mg/dL | EXTERNAL | | | Urine | | | LAB | | + + + + + + | WBC, UA | 3-5 | 0 - 5 /hpf | EXTERNAL | | | | | | LAB | | + + + + + + | RBC, UA | 6-10 | 0 - 2 /hpf | EXTERNAL | | | | | | LAB | | + + + + + + | Bacteria, | 1+ (A) | | EXTERNAL | | | UA | | | LAB | | + + + + + + | Epithelial | 11-15 | /lpf | EXTERNAL | | | Cells | | | LAB | | + + + + + + | Mucus, | 1+Comment: Testing | | EXTERNAL | | | Urine | performed at [facility];[id number] | | LAB | | | | [address];[place] | | | | | | [address] | | | | + + + + + + + + | Specimen | + + | | + + + +---------+ + + | Performing | Address | City/State/Zipcode | Phone Number | | Organization | | | | + +---------+ + + | EXTERNAL LAB | | | | + +---------+ + + External Lab: CBC (04/29/2017 4:53 PM PDT) + + + + + + | Component | Value | Ref Range | Performed | Pathologist | | | | | At | Signature | + + + + + + | WBC | 9.54 | 3.80 - 11.00 | EXTERNAL | | | | | K/uL | LAB | | + + + + + + | Non- | 4.99 | 4.20 - 5.70 | EXTERNAL | | | Red Blood | | M/uL | LAB | | | Cells | | | | | | Counted | | | | | + + + + + + | Hemoglobin | 15.8 | 13.2 - 17.0 | EXTERNAL | | | | | g/dL | LAB | | + + + + + + | Hematocrit, | 45.6 | 39.0 - 50.0 % | EXTERNAL | | | POC | | | LAB | | + + + + + + | MCV | 91.4 | 80.0 - 100.0 fl | EXTERNAL | | | | | | LAB | | + + + + + + | MCH | 31.7 | 27.0 - 34.0 pg | EXTERNAL | | | | | | LAB | | + + + + + + | MCHC | 34.6 | 32.0 - 35.5 | EXTERNAL | | | | | g/dL | LAB | | + + + + + + | RDW-CV | 43.8 | 37 - 53 fl | EXTERNAL | | | | | | LAB | | + + + + + + | Platelet | 207 | 150 - 400 K/uL | EXTERNAL | | | Count | | | LAB | | | Plasma | | | | | + + + + + + | MPV | 8.5 | fl | EXTERNAL | | | | | | LAB | | + + + + + + | Differentia | AUTOMATED | | EXTERNAL | | | l Type | | | LAB | | + + + + + + | % Segmented | 61.67 | % | EXTERNAL | | | | | | LAB | | | Neutrophils | | | | | + + + + + + | % | 28.94 | % | EXTERNAL | | | Lymphocytes | | | LAB | | + + + + + + | % Monocytes | 6.70 | % | EXTERNAL | | | | | | LAB | | + + + + + + | % | 1.77 | % | EXTERNAL | | | Eosinophils | | | LAB | | + + + + + + | % Basophils | 0.92 | % | EXTERNAL | | | | | | LAB | | + + + + + + | Absolute | 5.89 | 1.90 - 7.40 | EXTERNAL | | | Segmented | | K/uL | LAB | | | Neutrophils | | | | | + + + + + + | Absolute | 2.76 | 1.00 - 3.90 | EXTERNAL | | | Lymphocytes | | K/uL | LAB | | + + + + + + | Absolute | 0.64 | 0.00 - 0.80 | EXTERNAL | | | Monocytes | | K/uL | LAB | | + + + + + + | Absolute | 0.17 | 0.00 - 0.50 | EXTERNAL | | | Eosinophils | | K/uL | LAB | | + + + + + + | Absolute | 0.09Comment: Testing | 0.00 - 0.10 | EXTERNAL | | | Basophils | performed at [facility];[address] | [address] | LAB | | | | [address];[place], [place] | | | | | | [address] | | | | + + + + + + + + | Specimen | + + | Blood specimen | | (specimen) | + + + +---------+ + + | Performing | Address | City/State/Zipcode | Phone Number | | Organization | | | | + +---------+ + + | EXTERNAL LAB | | | | + +---------+ + + Lipase (04/29/2017 4:53 PM PDT) + + + + + + | Component | Value | Ref Range | Performed | Pathologist | | | | | At | Signature | + + + + + + | Lipase | 98Comment: Testing | 73 - 393 U/L | EXTERNAL | | | | performed at [facility];[address] | | LAB | | | | [address];[place] | | | | | | [address] | | | | + + + + + + + + | Specimen | + + | Blood specimen | | (specimen) | + + + +---------+ + + | Performing | Address | City/State/Zipcode | Phone Number | | Organization | | | | + +---------+ + + | EXTERNAL LAB | | | | + +---------+ + + Comprehensive Metabolic Panel (04/29/2017 4:53 PM PDT) + + + + + + | Component | Value | Ref Range | Performed | Pathologist | | | | | At | Signature | + + + + + + | Na | 139 | 135 - 145 | EXTERNAL | | | | | mmol/L | LAB | | + + + + + + | K | 4.0 | 3.5 - 4.9 | EXTERNAL | | | | | mmol/L | LAB | | + + + + + + | Cl | 105 | 99 - 109 mmol/L | EXTERNAL | | | | | | LAB | | + + + + + + | CO2 | 25 | 23 - 32 mmol/L | EXTERNAL | | | | | | LAB | | + + + + + + | Anion Gap | 13 | 5 - 20 mmol/L | EXTERNAL | | | | | | LAB | | + + + + + + | Glucose, | 93 | 65 - 99 mg/dL | EXTERNAL | | | Fasting | | | LAB | | + + + + + + | BUN | 24 | 8 - 25 mg/dL | EXTERNAL | | | | | | LAB | | + + + + + + | Creatinine | 1.0 | 0.70 - 1.30 | EXTERNAL | | | | | mg/dL | LAB | | + + + + + + | BUN/Creatin | 24 | | EXTERNAL | | | ine Ratio | | | LAB | | + + + + + + | Calcium | 8.7 | 8.5 - 10.5 | EXTERNAL | | | | | mg/dL | LAB | | + + + + + + | Protein, | 7.7 | 6.3 - 8.2 g/dL | EXTERNAL | | | Total | | | LAB | | + + + + + + | Albumin | 3.7 | 3.6 - 5.0 g/dL | EXTERNAL | | | | | | LAB | | + + + + + + | Globulin | 3.9 | 1.3 - 4.9 g/dL | EXTERNAL | | | | | | LAB | | + + + + + + | A/G Ratio | 1.0 | 1.0 - 2.4 | EXTERNAL | | | | | | LAB | | + + + + + + | Bilirubin | 0.2 | 0.1 - 1.5 mg/dL | EXTERNAL | | | Total | | | LAB | | + + + + + + | ALP, | 126 (H) | 35 - 115 U/L | EXTERNAL | | | External | | | LAB | | + + + + + + | AST | 23 | 10 - 45 U/L | EXTERNAL | | | | | | LAB | | + + + + + + | ALT | 59 | 10 - 65 U/L | EXTERNAL | | | | | | LAB | | + + + + + + | Estimated | >60Comment: GFR <60: | mL/min/1.73m2 | EXTERNAL | | | GFR | CHRONIC KIDNEY DISEASE, | | LAB | | | | IF FOUND OVER A 3 MONTH | | | | | | PERIOD.GFR <15: KIDNEY | | | | | | FAILURE.FOR | | | | | | AMERICANS, MULTIPLY THE | | | | | | CALCULATED GFR BY | | | | | | 1.210.Testing performed | | | | | | at [facility];[address] [place] [address] | | | | | | [facility];[place] [address] | | | | + + + + + + + + | Specimen | + + | Blood specimen | | (specimen) | + + + +---------+ + + | Performing | Address | City/State/Zipcode | Phone Number | | Organization | | | | + +---------+ + + | EXTERNAL LAB | | | | + +---------+ + + documented in this encounter Visit Diagnoses + + | Diagnosis | + + | Abdominal pain of unknown etiology Abdominal pain, unspecified site | + + | Elevated blood pressure reading Elevated blood pressure reading without diagnosis of | | hypertension | + + documented in this encounter
--- OUTSIDE RECORDS SUMMARY | ~2020-04-02 | XMS | Encounter Summary ---
Demographics + + + | Address | [address] | | | [place] [address] | + + + | Home Phone | | + + + | Preferred Language | Unknown | + + + | Marital Status | Unknown | + + + | Faith Affiliation | Unknown | + + + | Race | White | + + + | Ethnic Group | Unknown | + + + Author + + + | Author | [facility] | | | and [place] | + + + | Organization | [facility] | | | and [place] | + + + | Address | Unknown | + + + | Phone | Unavailable | + + + Care Team Providers + +------+ + | Care Solderer Assembly Repair Name | Role | Phone | + [...] | | | | D[place] MARY | [phone] | | | | | [address] | | | | | | [phone] | | | +--------+ + + + [...]
--- OUTSIDE RECORDS SUMMARY | ~2020-04-02 | XMS | Clinical Summary ---
Demographics + + + | Address | [address] | | | [place] [address] | + + + | Home Phone | | + + + | Preferred Language | Unknown | + + + | Marital Status | Unknown | + + + | Synagogue Affiliation | Unknown | + + + | Race | White | + + + | Ethnic Group | Unknown | + + + Author + + + | Author | [facility] | | | and [place] | + + + | Organization | [facility] | | | and [place] | + + + | Address | Unknown | + + + | Phone | Unavailable | + + + Care Team Providers + +------+ + | Care Preschool Lead Teacher Name | Role | Phone | + [...] + + Plan of Treatment + + +-------+ + | Health Maintenance | Due Date | Last | Comments | | | | Done | | + + +-------+ + | Vaccine: | | | | | Dtap/Tdap/Td (1 - | 4 | | | | Tdap) | | | | + + +-------+ + | Vaccine: Influenza | | | | | (#1) | 0 | | | + + +-------+ + Results Not on filefrom Last 3 Months
--- OUTSIDE RECORDS SUMMARY | ~2020-04-02 | XMS | Encounter Summary ---
Demographics + + + | Address | [address] | | | [place] [address] | + + + | Home Phone | | + + + | Preferred Language | Unknown | + + + | Marital Status | Single | + + + | Yazidism Affiliation | CHR | + + + | Race | White | + + + | Ethnic Group | Not or | + + + Author + + + | Author | [facility] | + + + | Organization | [facility] | + + + | Address | Unknown | + + + | Phone | Unavailable | + + + Support + + +---------+ + | Name | Relationship | Address | Phone | + + +---------+ + | Leticia Wheatley | ECON | Unknown | | + + +---------+ + Care Team Providers + +------+ + | Care Sub Prior Name | Role | Phone | + [...] + + | 12/28/ | Emergency | [facility] Emergency | Elaine Godfrey, | | | 2014 | | Department [address] | MD [address] | | | | | [address] | [address] | | | | | [facility] | [address] | | | | | [place], [place] | Cristina Pollock [place], | | | | | [address] | [place] [address] | | | | | [phone] | [phone] | | | | | | | [...] of the body. We appreciate you choosing [facility] for your healthcare. Low Back [...] front of you at the same time. Nhbp-eu-ubcdd exercise Lie on your back with your [...] "Low Back Pain: Exercises", log into your [employer] account at [email or web address]. You can enter [id number] in the [employer]" search box. Not on [employer]? Review the [employer] section of your After Visit Summary for directions on ho w to sign up. [id number] [employer]. Care instructions adapted under license by [facility]. This care instruction is for use with your licensed healthcar e professional. If you have questions about a medical condition or this instruction, always ask your healthcare professional. [employer] disclaims any warranty or liabili ty for your use of this information. Content Version: 10.3.373744; Current as of: March 04, 2014 Learning [...] doctor if you can take an o olv-fuu-xgkajkj medicine. What else can you do? Stretch [...] Back pain can lead to a vicious shoshone-bannock: Distress about the pain tenses th e muscles in your back, which in turn causes more pain. Learn how to relax your mind and you r muscles to lower your stress. Where can you learn more? To learn more about "Learning About Relief for Back Pain", log into your [employer] account at [email or web address]. You can enter [id number] in the [email or web address] Library" search box. Not on [employer]? Review the [employer] section of your After Visit Summary for directions on manny abad to sign up. [phone] [employer]. Care instructions adapted under license by [facility]. This care instruction is for use with your licensed healthcar e professional. If you have questions about a medical condition or this instruction, always ask your healthcare professional. [employer] disclaims any warranty or liabili ty for your use of this information. Content Version: 10.4.333528; Current as of: December 26, 2013 Back [...] doctor if you can take an o fuq-rtc-xmxrncv medicine. Take short walks several times a [...] Pain: After Your Visit", log into your [employer] account at [email or web address]. You can enter [id number] in the [employer]" search box. Not on [employer]? Review the [employer] section of your After Visit Summary for directions on ho w to sign up. [phone] [employer]. Care instructions adapted under license by [facility] [place]. This care instruction is for use with your licensed healthcar e professional. If you have questions about a medical condition or this instruction, always ask your healthcare professional. [employer] disclaims any warranty or liabili ty for your use of this information. Content Version: 10.3.082313; Current as of: December 26, 2013 documented in this encounter ED Notes Natalee Amador RN - 12/28/2014 9:35 PM PDTRN DISCHARGE NOTE: The patient verbalizes understanding of written discharge/home care instructions as a evide nced by Follow-up plan of care reviewed w/ patient, Pt voiced understanding of plan of care and Written dx instructions reviewed w/ patient. The patient was discharged Ambulatory via Walking and Bus with self in no emergent distress. Natalee Curtis RN - 12/28/2014 8:[address] Peng all tests were complete. Natalee Curtis RN - 12/28/2014 7:40 PM PDTPt bladder scanned for a post residual void amount of 0ml. atalee Amador RN - 12/28/2014 7:28 PM PDT I have assumed care of this patient.Electronically signed by Natalee Amador RN at 015 7:28 PM PDTElaine Godfrey MD - 12/28/2014 7:10 PM PDT ED Shared Provider Note, co-authored by Elaine Godfrey and Jero Peng MD: HPI Triage chief complaint: Chief Complaint Patient presents with LBP - Low back pain 39 y.o. 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 Pain shot to right foot as this happened, no more shooting pains or leg pains. Some mild stocking distribution tingling of the right foot. Last flare 1.5 months ago. He reports that he is new to [facility] (previously in [facility]) and has now been assigned [facility]. He filled out paperwork and initially when octavio led regarding this lower back injury, [facility], but had not set him up with pcp. No fevers No loss of bladder or bowel control. Some urinary urgency for the past week, but no abdomi nal pain and no difficulty urinating, no urinating without intending to. No numbness of the groin. Still able to walk normally. Normally smokes marijuana or takes someone else's "pills" including opiate pain medication for this. Saw PCP for this 1-2 months ago for back pain flare. Today is pretty painful. No skin changes. PCP: No Pcp Per PATIENT There are no active problems to display for this patient. Past Medical History Gout Low back pain L2 fracture asthma TORSTEN Past Surgical History Denies any Medications None Allergies Allergen Reactions Tramadol Dyspnea Vicodin [Hydrocodone-Acetaminophen] Rash Social History reports that he has been using tobacco. He reports that he uses illicit drugs (Smoke). H e reports that he does not currently drink alcohol. Family History Reviewed and noncontributory ROS I performed a complete 10-point ROS, which was found to be negative other than the history listed in the HPI. ED Triage Vitals BP Temp Pulse Pulse - Plethysmograph Resp SpO2 12/28/14 1448 12/28/14 1448 12/28/14 1448 -- 12/28/14 1448 12/28/14 1448 150/76 mmHg 36.6 C 79 16 99 % Physical Exam Constitutional: He is oriented to person, place, and time. He appears well-developed and we ll-nourished. No distress. HENT: Head: Atraumatic. Mouth/Throat: Oropharynx is clear and moist. Eyes: Conjunctivae and EOM are normal. Neck: Neck supple. Cardiovascular: Normal rate and regular rhythm. Exam reveals no gallop and no friction rub . No murmur heard. Pulmonary/Chest: Effort normal and breath sounds normal. No stridor. No respiratory distres s. He has no wheezes. He has no rales. Abdominal: Soft. Bowel sounds are normal. He exhibits no distension. There is no tenderness . There is no rebound and no guarding. Musculoskeletal: He exhibits no edema. Midline mid-L spine and R>L paraspinal and superior buttock tenderness. No greater trochan ter or inguinal tenderness. Straight leg raise negative bilaterally, only reproduce low back pain. Neurological: He is alert and oriented to person, place, and time. CN III-XII intact, pt reports vision normal Strength 5/5 about all joints in all extremities, flexion and extension, proximally to dist ally. Normal sensation all extremities, including right foot Normal gait. Normal heel walking and toe walking F2N intact bilaterally, H2S intact bilaterally. Coordination normal. Skin: Skin is warm and dry. He is not diaphoretic. No pallor. No flank rashes Psychiatric: His behavior is normal. Thought content normal. Nursing note and vitals reviewed. ED COURSE AND MEDICAL DECISION MAKING: ED Medication Administration from 12/28/2014 1444 to 12/29/2014 1451 None Patient was triaged to an acute care room. Vitals were wnl. In brief, this is a 39 y.o. 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 Some nu mbness vs tingling in the right foot, sensory exam normal now, no radicular symptoms of shoo ting pains or dermatomal numbness in the leg. Suspect muscle strain, spinal disease and ner ve root irritation also possible. No red flags for cord compression, given normal neuro exa m doubt critical nerve root compression. No e/o Zoster, doubt kidney stones. Abdominal exa m normal. PVR 0 Some urgency, checked urine dip, no e/o infection. Feel pain is appropriate for outpatient management. Discussed ibuprofen, exercises, stayin g out of bed. Work note provided for light duty. Patient is felt to be safe for discharge. Plan for follow-up with primary care provider, return instructions given including bladder /bowel issues, leg weakness, shooting pains in the legs, difficulty walking or for any other concerning symptoms. Pt understands and agrees with plan. Pt is ambulatory. Dante Crowley did not require hospitalization and was discharged at the completion of ED car e. IMPRESSION: 724.2 Midline low back pain, with sciatica presence unspecified PLAN, DISPOSITION AND FOLLOW-UP: Discharge home Ibuprofen PRN Exercises Stay out of bed Light Duty Follow-up with PCP Return instructions as above Yaniv Farrell R N - 12/28/2014 2:49 PM PDTPatient was lifting a heavy object about 1300 today. Fell to the ground d/t immediate back pain. Difficulty standing up at first. Now c/o low back pain, R fo ot with some numbness, new onset urinary urgency. documented in this encounter Miscellaneous Notes ED Teaching Notes - Elaine Godfrey MD - 12/29/2014 2:51 PM PDTElaine Godfrey MD, [facility] Note: I saw and evaluated the patient and discussed the diagnosis, management, and interpretation of results with the resident. I performed and confirmed the haines portions of the service. I have reviewed and agree with the documentation in the provider note. documented in this encounter Plan of Treatment [...] [facility] | | | | | | [place], POINT | | | | | | OF CARE | | | | | | TESTS | | + + + + + + | APPEARANCE | Clear | | [facility] - | | | (UA DIP), | | | [facility] | | | POC | | | [place], POINT | | | | | | OF CARE | | | | | | TESTS | | + + + + + + | LEUKOCYTES | Negative | Negative | [facility] - | | | (UA DIP), | | | [facility] | | | POC | | | [place], POINT | | | | | | OF CARE | | | | | | TESTS | | + + + + + + | NITRITES | Negative | Negative | [facility] - | | | (UA DIP), | | | [facility] | | | POC | | | [place], POINT | | | | | | OF CARE | | | | | | TESTS | | + + + + + + | UROBILINOGE | 0.2 | 0.2 - 1.0 | [facility] - | | | N (UA DIP), | | E.U./dL | [facility] | | | POC | | | [place], POINT | | | | | | OF CARE | | | | | | TESTS | | + + + + + + | PROTEIN (UA | Negative | Neg - Trace | [facility] - | | | DIP), POC | | mg/dL | [facility] | | | | | | [place], POINT | | | | | | OF CARE | | | | | | TESTS | | + + + + + + | PH (UA | 6.0 | 5.0 - 8.0 | [facility] - | | | DIP), POC | | | [facility] | | | | | | [place], POINT | | | | | | OF CARE | | | | | | TESTS | | + + + + + + | BLOOD (UA | Negative | Negative | [facility] - | | | DIP), POC | | | [facility] | | | | | | [place], POINT | | | | | | OF CARE | | | | | | TESTS | | + + + + + + | SPECIFIC | 1.025 | 1.005 - 1.030 | [facility] - | | | GRAVITY (UA | | | [facility] | | | DIP), POC | | | [place], POINT | | | | | | OF CARE | | | | | | TESTS | | + + + + + + | KETONES (UA | Negative | Negative mg/dL | [facility] - | | | DIP), POC | | | [facility] | | | | | | [place], POINT | | | | | | OF CARE | | | | | | TESTS | | + + + + + + | BILIRUBIN | Negative | Negative | [facility] - | | | (UA DIP), | | | [facility] | | | POC | | | [place], POINT | | [...] | + + + + + | [facility] | [address] | [place] | | | [place] [address] | [address] | [address] | | | TESTS | | | | + + + + + documented in this encounter Visit Diagnoses + + | Diagnosis | + + | Midline low back pain, with sciatica presence unspecified - Primary | + + documented in this encounter
--- OUTSIDE RECORDS SUMMARY | ~2020-04-02 | XMS | Clinical Summary ---
Demographics + + + | Address | [address] | | | [place] [address] | + + + | Home Phone | | + + + | Preferred Language | Unknown | + + + | Marital Status | Single | + + + | Advent Affiliation | CHR | + + + [...] Team Providers + +------+ + | Care Faculty Instructor Name | Role | Phone | + +------+ + | No Pcp Per Patient | PCP | Unavailable | + +------+ + Source Comments AARON is fully live on both [facility] Ambulatory and [facility] InPatient.[facility] Allergies + + + + + [...] | | + + +-------+ + | Pneumococcal | | | | | vaccination (1 of 1 | 1 | | | | - PPSV23) | | | | + + +-------+ + | Influenza (Flu) | | | | | vaccination (#1) | 0 | | | + + +-------+ + Results Not on filefrom Last 3 Months"
--- OUTSIDE RECORDS SUMMARY | ~2020-04-02 | XMS | Encounter Summary ---
Demographics + + + | Address | [address] | | | [place] [address] | + + + | Home Phone | | + + + | Preferred Language | Unknown | + + + | Marital Status | Single | + + + | Restorationism Affiliation | CHR | + + + [...] Team Providers + +------+ + | Care Automatic Casting Machine Operator Name | Role | Phone | + +------+ + PCP | Unavailable | + +------+ + Encounter Details +--------+ + + + + | Date | Type | Department | Care Team | Description | +--------+ + + + + | 11/27/ | Results | | Other, Faculty | | | 1993 | Only | | [phone] | | +--------+ + + + + [...] | + +--------+ + + + | OS PAPITO JACKSON), 2 | Routin | 11/27/1993 | [...] + + documented in this encounter Results OS CALCIS (HEEL), 2 VIEWS (11/27/1993 1:45 PM PDT) + + + + + + | Component | Value | Ref Range | Performed | Pathologist | | | | | At | Signature | + + + + + + | OS CALCIS | Radiologist 1: J[facility], | | | | | (PEDRO), 2 | [facility], | | | [...] | | + +---------+ + + | [facility] | | | | | [...] 1: JESUS, | | | | | DAISY | [facility] | | | | | | Fahad-Radiologist 2: | | | | | | [facility] | | | | | | DANTE TRINH | | | | | | | [...] | | + +---------+ + + | [facility] | | | | | RADIOLOGY | | | | + +---------+ + + documented in this encounter Visit Diagnoses Not on filedocumented in this encounter"
--- OUTSIDE RECORDS SUMMARY | ~2020-04-02 | XMS | Encounter Summary ---
Demographics + + + | Address | [address] | | | [place] [address] | + + + | Home Phone | | + + + | Preferred Language | Unknown | + + + | Marital Status | Unknown | + + + | Roman Catholic Affiliation | Unknown | + + + | Race | White | + + + | Ethnic Group | Unknown | + + + Author + + + | Author | [facility] | | | and Jaiana | + + + | Organization | [facility] | | | and Jaiana | + + + | Address | Unknown | + + + | Phone | Unavailable | + + + Care Team Providers + +------+ + | Care Utility Arborist Name | Role | Phone | + +------+ + PCP | Unavailable | + +------+ + Encounter Details +--------+ + + + + | Date | Type | Department | Care Team | Description | +--------+ + + + + | 02/11/ | Emergency | [facility] | Yaniv Bermudez MD | Acute gout involving | | 2017 | | [facility] | [address] | toe of right foot, | | | | EMERGENCY CENTER | [place] [address] | unspecified cause; | | | | [address] | [phone] | Elevated blood | | | | [place], [place] | | pressure | | | | [address] | | | | | | [phone] | | | +--------+ + + + [...] documented as of this encounter ED Notes Chong Rodríguez PA - 02/11/2017 11:12 AM PDTFormatting of this note might be different from janna kincaid. ED Provider Notes by Marcos Schwarz PA-C at 02/11/17 111 Author: Marcos Schwarz PA-C Service: Emergency Department Author Type: Physician Assista nt - Certified Filed: 02/11/17 123 Date of Service: 02/11/171111 Status: Attested Drama Director: Marcos Schwarz PA-C (Physician Lactation Nurse - Certified) Cosigner: Yaniv Bermudez MD at 02/11/17 1235 Attestation signed by Yaniv Bermudez MD at 02/11/17 1235 I have reviewed the note and supervised the APC. Procedures [facility] Department of Emergency Medicine History of Present Illness Patient Identification Dante Hernandes is a 42 y.o. male. Patient information was obtained from patient. History/Exam limitations: none. Patient presented to the Emergency Department by: Car Chief Complaint Chief Complaint Patient presents with Toe Pain 2nd toe on right foot pain and swelling, pt states hasn't had feeling in that foot for 5- 6 years d/t back injury. Patient presents to the ED with complaint of R second toe pain x 3 days that is sharp and f elt along the lateral border of his toenail. He has noticed some swelling and redness as wel l that comes and goes. Patient states he typically has very little feeling in that foot due to prior injury so he felt something was wrong for him to feel that much pain. The pain was enough to wake him up at night and is uncomfortable when the sheets touch his foot or when h e is wearing close-toed shoes. Patient has hx of gout in first toe of R foot two years ago a nd he states this pain feels similar. Patient has tried taking 5 tabs of 200mg Ibuprofen q 4 hrs for pain without relief. Nothing seems to lessen the pain. He denies any discharge, fev er, chills. Past Medical History Diagnosis Date Gout History reviewed. No pertinent past surgical history. Prior to Admission medications Not on File Allergies Allergen Reactions Tramadol Other (See Comments) "breathing problems" Social History Social History Marital Status: Spouse Name: N/A Number of Children: N/A Years of Education: N/A Occupational History Not on file. Social History Main Topics Smoking status: Current Every Day Smoker -- 1.00 packs/day Smokeless tobacco: Not on file Alcohol Use: No Drug Use: Yes Special: Marijuana Sexual Activity: Not on file Other Topics Concern Not on file Social History Narrative Family History Problem Relation Age of Onset Heart disease Maternal Grandfather ROS Review of Systems Constitutional: Negative for: fever, chills, fatigue, sweats or weight loss Eyes: Negative for: decreased vision or irritated eyes Nose: Negative for: nosebleed Throat: Negative for: mouth sores Cardiovascular/Respiratory: Negative for: chest pain, shortness of breath, cough Gastrointestinal: Negative for: abdominal pain, vomiting, diarrhea, black or bloody stools Genitourinary: Negative for: dysuria, hematuria, urinary problems Musculoskeletal: Negative for: myalgias and arthralgias + R foot 2nd toe pain, swelling, r edness Skin: Negative for: laceration or lesion Neuro and psych: Negative for: fainting, head injury, seizure, trouble walking Endocrine/Heme/Lymph: Negative for: swollen lymph nodes, easy bruising Physical Exam BP 159/89 mmHg | Pulse 74 | Temp(Src) 98.2 F (36.8 C) (Temporal) | Resp 18 | Ht 1.88 m (6' 2") | Wt 135.8 kg (299 lb 6.2 oz) | BMI 38.42 kg/m2 | SpO2 97% Pulse Oximetry interpretation: Normal General: Alert, in no apparent distress Eyes: Normal inspection, pupils equal and round, non-icteric ENT: Ears normal Nose normal Pharynx normal Neck: Normal inspection Supple No lymphadenopathy No meningismus Cardiovascular: Rate and rhythm normal No murmurs Distal pulses intact bilaterally Respiratory: Breath sounds normal bilaterally Abdomen: Soft, non-tender, non-distended No guarding or rebound Genitourinary: Deferred Rectal exam: Deferred Back: Normal inspection MS: 2nd toe of R foot is mildly erythematous and very TTP along lateral border of toenail . No discharge, swelling or warmth. Moves all extremities no tenderness palpated to the fore foot or metatarsals or metatarsophalangeal joints of the right foot. Skin: Color normal Warm and dry No rash Neuro: No motor deficit No sensory deficit Normal gait ED Course Medical Decision Making and Emergency Department Course ED Department Course 1110 - examined patient, DDX includes, but is not limited to: paronychia, gout, fracture, s eptic arthritis versus other soft tissue injury or infection. Patient is 42 yo M who present s today with 3 days of worsening 2nd toe R foot pain along lateral border of toe nail. He reese s hx of gout and back injury causing numbness in R foot. Patient states the pain is sharp an d similar to his prior gout episode. Will order xray and give APAP, then reassess. The patient was hypertensive on presentation. Differential for hypertension in the emerge ncy department is extensive and not limited to pain, anxiety, established and uncontrolled h ypertension, poor medication compliance vs other. I discussed this with the patient and wi ll have patient follow up with primary care provider for ongoing concerns. 1203 radiograph negative, patient reassessed this patient has history of gout and feels sim ilar to previous flareups. Will give 1.2 mg of colchicine in the Emergency Department and di scharged home with 30 days supply of colchicine 0.6 mg qd as well as indomethacin. Encourage d patient not to use any other NSAIDs. Patient agreeable with treatment plan. Will discharge home to follow up with PCP, no further emergent lab work or imaging needed. I discussed with the patient at length of signs and symptoms of what would constitute a retu rn visit to the ED. Patient is nontoxic-appearing and afebrile at time of discharge. All que stions answered prior to discharge. Records Reviewed Old medical records. Labs & Radiology Results Laboratory Evaluation Results None Radiology and EKG Evaluation Imaging Results XR Toe Right 2 View (Final result) Result time: 02/11/17 12:17:39 Final result by Rad Results In Vahid (02/11/17 12:17:39) Impression: 1. Normal right second toe. 2. Osteopenia. 3. Mild structural abnormalities as noted above. Narrative: DANTE HERNANDES XR TOES RIGHT 02/11/2017 11:47 AM History: 42 years. Male. Right second toe pain. Technique: AP view of the foot with oblique and lateral views of the affected toe Comparison exam: None. FINDINGS: Ossicles of the right second toe appear intact, without fracture. Interphalange al joint spaces are normal. The remaining phalanges and metatarsal ossicles are likewise ne gative for acute finding. There is mild metatarsus varus and hallux valgus. Joint spaces are well-maintained through out the forefoot. Osteopenia is moderate. The soft tissues are normal, without swelling or calcification. Diagnosis & Disposition ED Diagnoses Final diagnoses Acute gout involving toe of right foot, unspecified cause Elevated blood pressure Disposition: ED Disposition Discharge Condition at discharge: Stable Follow-up Information Follow up With Details Comments Contact [facility] Emergency Department [facility] symptoms worsen [address] [facility] [address] [facility] Next available to establish care [address] [facility] [address] Discharge Medications: Discharge Medication List as of 02/11/2017 12:20 PM START taking these medications Details colchicine 0.6 MG tablet Take 1 tablet by mouth daily., Starting 02/11/2017, Until Sun , Print indomethacin (INDOCIN) 50 MG capsule Take 1 capsule by mouth 3 (three) times daily with gloria ls., Starting 02/11/2017, Until 03/13/17, Print Dictation software, [employer], used which may contain error for similar sounding words even af ter review. Personal communication requested for any clarification. Marcos Schwarz PA-C 02/11/17 1232 Yaniv Bermudez MD 02/11/17 1235 documente d in this encounter Plan of [...] Conversion - 03/07/2019 10:01 PM PDT DANTE KAPLAN TOES RIGHT02/11/2017 | | 11:47 AM [...]
[2020-04-02] MEDS ORDERED: ALLOPURINOL100 MG PO (16:42)
[2020-04-02] MEDS ORDERED: FLOVENT HFA10.6 GM PO (16:43)
[2020-04-02] MEDS ORDERED: CYCLOBENZAPRINE10 MG PO (19:19)
== END 2020-04-02 19:55 | disposition home or self-care (01) ==
LOC: ED 16:09
DX: R10.9 Unspecified abdominal pain (principal); M10.9 Gout, unspecified; F17.200 Nicotine dependence, unspecified, uncomplicated; Z88.5 Allergy status to narcotic agent; Z79.899 Other long term (current) drug therapy
CPT/HCPCS: 71046; 80053; 81001; 83690; 85025; 85379; 96374; 99283-25; J1885

== ENCOUNTER 2020-11-09 12:02 | Emergency (ER) | payer SELFPAY ==
[~2020-11-09] VITALS: Ht 188 cm; Wt 129.3 kg
[~2020-11-09 12:02] MED LIST changes: +ALLOPURINOL100 MG PO; +CYCLOBENZAPRINE10 MG PO; +FLOVENT HFA10.6 GM PO
[2020-11-09] MEDS ORDERED: PREDNISONE20 MG PO (12:34)
[2020-11-09] MEDS ORDERED: HYDROCODON-ACE1 EA11 PO (12:34)
[2020-11-09] MEDS ORDERED: COLCHICINE0.6 M1 PO (12:34)
== END 2020-11-09 12:47 | disposition home or self-care (01) ==
LOC: ED 12:02
DX: M10.9 Gout, unspecified (principal); F17.200 Nicotine dependence, unspecified, uncomplicated; Z88.5 Allergy status to narcotic agent; Z79.899 Other long term (current) drug therapy
CPT/HCPCS: 99283; A9270; J7512

== ENCOUNTER 2020-12-04 23:08 | Emergency (ER) | payer SELFPAY ==
[~2020-12-04] VITALS: Ht 188 cm; Wt 124.7 kg
[~2020-12-04 23:08] MED LIST changes: +HYDROCODON-ACE1 EA11 PO; +PREDNISONE20 MG PO
--- OUTSIDE RECORDS SUMMARY | 2020-12-04 23:10 | XMS ---
PreManage Notification: TOOTIE HERNANDES Security Pin Inserter Regulator Events No recent Security Events currently on file CRITERIA MET - [facility] - 2 Visits in 30 Days CARE PROVIDERS YVONNE ROCHE Physician Metal Fabrication Supervisor Current PHONE: [phone] Alisha has no Care Guidelines for this patient. EMony VISIT COUNT (12 MO.) [address] [facility] TOTAL 5 NOTE: Visits indicate total known visits. ED/UCC VISIT TRACKING (12 MO.) 12/04/2020 23:08 [facility] TYPE: Emergency COMPLAINT: - DENTAL PAIN 11/09/2020 12:03 [facility] TYPE: Emergency COMPLAINT: - PAIN IN LEFT FOOT DIAGNOSES: - Other long line teamster (current) drug therapy - Nicotine dependence, unspecified, uncomplicated - Gout, unspecified - Allergy status to narcotic agent 04/02/2020 16:10 [facility] TYPE: Emergency COMPLAINT: - BACK PAIN DIAGNOSES: - Unspecified abdominal pain - Gout, unspecified - Other detention (current) drug therapy - Nicotine dependence, unspecified, uncomplicated - Pain in thoracic spine - Allergy status to narcotic agent 02/09/2020 05:18 [facility] TYPE: Emergency COMPLAINT: - WRIST PAIN DIAGNOSES: - Pain in left wrist - Allergy status to narcotic agent - Gout, unspecified - Nicotine dependence, unspecified, uncomplicated 01/16/2020 09:29 [facility] TYPE: Emergency COMPLAINT: - LUNGS HURT DIAGNOSES: - Nicotine dependence, unspecified, uncomplicated - Shortness of breath - Allergy status to narcotic agent - Other chest pain INPATIENT VISIT TRACKING (12 MO.) No inpatient visits to display in this time frame [email or web address]
[2020-12-04] MEDS ORDERED: PENICILLIN V P500 MG PO (23:30)
== END 2020-12-04 23:50 | disposition home or self-care (01) ==
LOC: ED 23:08
DX: K04.7 Periapical abscess without sinus (principal); M10.9 Gout, unspecified; F17.200 Nicotine dependence, unspecified, uncomplicated; Z88.5 Allergy status to narcotic agent; Z79.899 Other long term (current) drug therapy
CPT/HCPCS: 99282

== ENCOUNTER 2021-10-06 01:52 | Emergency (ER) | payer BC ==
[~2021-10-06] VITALS: Ht 188 cm; Wt 140.7 kg
[~2021-10-06 01:52] MED LIST changes: +CIPRO500 MG PO; +TAMIFLU75 MG PO
[2021-10-06] MEDS ORDERED: IBUPROFEN800 MG PO (02:59)
[2021-10-06] MEDS ORDERED: COLCHICINE0.6 M1 PO (02:59)
== END 2021-10-06 03:39 | disposition home or self-care (01) ==
LOC: ED 01:52
DX: M10.9 Gout, unspecified (principal); J45.909 Unspecified asthma, uncomplicated; F17.200 Nicotine dependence, unspecified, uncomplicated; Z88.5 Allergy status to narcotic agent
CPT/HCPCS: 99283; A9270

== ENCOUNTER 2021-11-22 20:00 | Emergency (ER) | payer BC ==
[~2021-11-22] VITALS: Ht 188 cm; Wt 138.0 kg
[~2021-11-22 20:00] MED LIST changes: +IBUPROFEN800 MG PO
--- NOTE | 2021-11-23 08:30 | EKG ---
[facility] [address] [place], [place] [address] Signed Normal sinus rhythm Minimal voltage criteria for LVH, may be normal variant ( R in aVL ) Borderline ECG No previous ECGs available Confirmed by WILLIAN SHI MD ([id number]) on 11/23/2021 8:30:37 AM Electronically Signed By: WILLIAN SHI MD 11/23/21 0830 PATIENT NAME: TOOTIE HERNANDES GEE Electrocardiogram DATE OF : 75 PHYSICIAN: WILLIAN SHI MD REPORT #: [id number] REPORT IS CONFIDENTIAL AND NOT TO BE RELEASED WITHOUT AUTHORIZATION
== END 2021-11-22 22:04 | disposition home or self-care (01) ==
LOC: ED 20:00
DX: R20.2 Paresthesia of skin (principal); M10.9 Gout, unspecified; J45.909 Unspecified asthma, uncomplicated; F17.200 Nicotine dependence, unspecified, uncomplicated; Z88.5 Allergy status to narcotic agent
CPT/HCPCS: 36415; 70450; 70496; 70498; 80053; 81001; 84484; 85025; 85610; 93005; 93010; 99284-25; Q9967

== ENCOUNTER 2023-03-08 13:54 | Emergency (ER) | payer BC ==
[~2023-03-08] VITALS: Ht 188 cm; Wt 138.4 kg
--- OUTSIDE RECORDS SUMMARY | 2023-03-08 13:56 | XMS ---
PreManage Notification: TOOTIE HERNANDES Security Security Technician Events No recent Security Events currently on file CRITERIA MET - [facility] CARE PROVIDERS YVONNE ROCHE Physician Preparation Plant Supervisor Current PHONE: Unknown SUMEET [facility] Current PHONE: Unknown Alisha has no Care Guidelines for this patient. Cristina VISIT COUNT (12 MO.) 1 [facility] TOTAL 1 NOTE: Visits indicate total known visits. ED/UCC VISIT TRACKING (12 MO.) 03/08/2023 13:[address] [facility] TYPE: Emergency COMPLAINT: - L HAND INJURY INPATIENT VISIT TRACKING (12 MO.) No inpatient visits to display in this time frame [email or web address]
[2023-03-08] MEDS ORDERED: ALLOPURINOL100 MG PO (14:05)
[2023-03-08] MEDS ORDERED: LOSARTAN POTASS50 MG PO (14:05)
[2023-03-08] MEDS ORDERED: HYDROCODON-ACE1 EA11 PO (16:14)
[2023-03-08 16:20] VITALS: BP 146/95
== END 2023-03-08 16:41 | disposition home or self-care (01) ==
LOC: ED 13:54
DX: S62.307A Unspecified fracture of fifth metacarpal bone, left hand, initial encounter for closed fracture (principal); F17.200 Nicotine dependence, unspecified, uncomplicated; W01.198A Fall on same level from slipping, tripping and stumbling with subsequent striking against other object, initial encounter; Z88.5 Allergy status to narcotic agent; Z79.899 Other long term (current) drug therapy
CPT/HCPCS: 73130; A9270

== ENCOUNTER 2023-03-21 08:25 | Observation (INO) | payer BC ==
[2023-03-16 09:27] VITALS: BP 123/87
[2023-03-21] VITALS (14 sets, daily range): BP systolic 76–167; BP diastolic 41–100
[~2023-03-21] VITALS: Ht 188 cm; Wt 134.0 kg
--- OUTSIDE RECORDS SUMMARY | ~2023-03-21 | XMS | Continuity of Care Document ---
Demographics + + + | Address | [address] | | | [place] [address] | + + + | Preferred Language | Unknown | + + + | Marital Status | Domestic partner | + + + | Episcopal Affiliation | Unknown | + + + | Race | White | + + + | Ethnic Group | Not or | + + + Author + + + | Author | [facility] | + + + | Organization | [facility] | + + + | Address | [address] | | | [place] [address] | + + + | Phone | | + + + Care Team Providers + + + + | Care Industrial Relations Worker Name | Role | Phone | + + + + Unavailable | Unavailable | + + + + Unavailable | Unavailable | + + + + Unavailable | Unavailable | + + + + Unavailable | Unavailable | + + + + Allergies and Intolerances + + + + + + | date | description | facility | reaction | severity | + + + + + + | (no date) | Tramadol | [facility] | (no reaction) | (no severity) | | [facility] | | | + + + + + + | (no date) | Tramadol | [facility] | (no reaction) | (no severity) | | [facility] | | | + + + + + + | (no date) | Asthma | [facility] | (no reaction) | (no severity) | | | [facility] | | | + + + + + + | (no date) | | [facility] | (no reaction) | (no severity) | | | HYDROCODONE-KIM | [facility] | | | TAMINOPHEN | [place] | | | + + + + + + | (no date) | | [facility] | (no reaction) | (no severity) | | | HYDROCODONE-KIM | [facility] | | | | | TAMINOPHEN | [place] | | | + + + + + + | (no date) | Tramadol | [facility] | (no reaction) | (no severity) | | | [facility] | | | + + + + + + | (no date) | TRAMADOL | [facility] | (no reaction) | (no severity) | | | | [facility] | [place] | | | + + + + + + | (no date) | TRAMADOL | [facility] | (no reaction) | (no severity) | | | | [facility] | | | | [place] | | | + + + + + + | (no date) | tramadol | [facility] | (no reaction) | (no severity) | + + + + + + Encounters No information. Functional Status No information. Immunizations No information. Medications + + + + | date | description | facility | + + + + | 2023-03-22 00:00 | TIZANIDINE HCL | [facility] | + + + + | 2019-11-23 00:00 | COLCHICINE | [facility] | + + + + | 2019-11-23 00:00 | COLCHICINE | [facility] | + + + + | 2020-02-09 00:00 | COLCHICINE | [facility] | + + + + | 2020-02-09 00:00 | COLCHICINE | [facility] | + + + + | 2020-11-09 00:00 | COLCHICINE | [facility] | + + + + | 2020-11-09 00:00 | COLCHICINE | [facility] | + + + + | 2023-03-22 00:00 | DOXYCYCLINE HYCLATE | [facility] | + + + + | 2023-03-08 00:00 | ALLOPURINOL | [facility] | + + + + | 2023-03-22 00:00 | ALLOPURINOL | [facility] | + + + + | 2019-11-23 00:00 | OMEPRAZOLE | [facility] | + + + + | 2019-11-23 00:00 | OMEPRAZOLE | [facility] | + + + + | 2021-07-23 00:00 | CIPROFLOXACIN HCL | [facility] | + + + + | 2021-07-23 00:00 | CIPROFLOXACIN HCL | [facility] | + + + + | 2021-09-21 00:00 | OSELTAMIVIR PHOSPHATE | [facility] | + + + + | 2021-09-21 00:00 | OSELTAMIVIR PHOSPHATE | [facility] | + + + + | 2023-03-08 00:00 | IBUPROFEN | [facility] | + + + + | 2023-03-22 00:00 | IBUPROFEN | [facility] | + + + + | 2023-03-08 00:00 | IBUPROFEN | [facility] | + + + + | 2023-03-22 00:00 | IBUPROFEN | [facility] | + + + + | 2020-11-09 00:00 | predniSONE | [facility] | + + + + | 2020-11-09 00:00 | predniSONE | [facility] | + + + + | 2023-03-08 00:00 | ACETAMINOPHEN | [facility] | + + + + | 2023-03-22 00:00 | ACETAMINOPHEN | [facility] | + + + + | 2023-03-22 00:00 | AMOXICILLIN/POTASSIUM CLAV | [facility] | | | | | + + + + | 2019-11-23 00:00 | METHYLPREDNISOLONE | [facility] | + + + + | 2019-11-23 00:00 | METHYLPREDNISOLONE | [facility] | + + + + | 2020-04-02 00:00 | CYCLOBENZAPRINE HCL | [facility] | + + + + | 2020-04-02 00:00 | CYCLOBENZAPRINE HCL | [facility] | + + + + | 2019-11-09 00:00 | PENICILLIN V POTASSIUM | [facility] | + + + + | 2019-11-09 00:00 | PENICILLIN V POTASSIUM | [facility] | + + + + | 2020-12-04 00:00 | PENICILLIN V POTASSIUM | [facility] | + + + + | 2020-12-04 00:00 | PENICILLIN V POTASSIUM | [facility] | + + + + | 2023-03-21 00:00 | HYDROCODONE | [facility] | | | BIT/ACETAMINOPHEN | | + + + + | 2014-09-22 00:00 | HYDROCODONE | [facility] | | | BIT/ACETAMINOPHEN | | + + + + | 2014-09-22 00:00 | HYDROCODONE | [facility] | | | BIT/ACETAMINOPHEN | | + + + + | 2023-03-08 00:00 | HYDROCODONE | [facility] | | | BIT/ACETAMINOPHEN | | + + + + | 2023-03-22 00:00 | HYDROCODONE | [facility] | | | BIT/ACETAMINOPHEN | | + + + + | 2020-11-09 00:00 | HYDROCODONE | [facility] | | | BIT/ACETAMINOPHEN | | + + + + | 2020-11-09 00:00 | HYDROCODONE | [facility] | | | BIT/ACETAMINOPHEN | | + + + + | 2023-03-08 00:00 | HYDROCODONE | [facility] | | | BIT/ACETAMINOPHEN | | + + + + | 2023-03-08 00:00 | FLUTICASONE PROPIONATE 44 | [facility] | | | [facility] | | + + + + | 2023-03-22 00:00 | FLUTICASONE PROPIONATE 44 | [facility] | | | [facility] | | + + + + | 2023-03-22 00:00 | PHENTERMINE HCL | [facility] | + + + + | 2023-03-08 00:00 | LOSARTAN POTASSIUM | [facility] | + + + + | 2023-03-22 00:00 | LOSARTAN POTASSIUM | [facility] | + + + + Problems + + + + | date | description | facility | + + + + | 2014-09-22 00:00 | Shoulder pain | [facility] | + + + + | 2014-09-22 00:00 | Shoulder pain | [facility] | + + + + | 2019-06-03 15:50:33 | Radiculopathy, lumbar | [facility] - | | | region | [place] | + + + + | 2019-06-03 15:50:33 | Elevated blood-pressure | [facility] - | | | reading, without diagnosis | [place] | | | of hypertension | | + + + + | 2019-09-23 00:00 | Sprain of left ankle | [facility] | + + + + | 2019-09-23 00:00 | Sprain of left ankle | [facility] | + + + + | 2019-11-09 00:00 | Pain due to dental caries | [facility] | + + + + | 2019-11-09 00:00 | Pain due to dental caries | [facility] | + + + + | 2020-01-16 00:00 | Musculoskeletal chest pain | [facility] | | | | | + + + + | 2020-01-16 00:00 | Musculoskeletal chest pain | [facility] | | | | | + + + + | 2020-02-09 00:00 | Gout of left wrist | [facility] | + + + + | 2020-02-09 00:00 | Gout of left wrist | [facility] | + + + + | 2020-12-04 00:00 | Dental abscess | [facility] | + + + + | 2020-12-04 00:00 | Dental abscess | [facility] | + + + + | 2021-07-23 00:00 | Urinary tract infection | [facility] | + + + + | 2021-07-23 00:00 | Urinary tract infection | [facility] | + + + + | 2021-09-21 00:00 | Influenza due to influenza | [facility] | | | virus, type A, human | | + + + + | 2021-09-21 00:00 | Influenza due to influenza | [facility] | | | virus, type A, human | | + + + + | 2021-09-21 00:00 | Pleurisy | [facility] | + + + + | 2021-09-21 00:00 | Pleurisy | [facility] | + + + + | 2021-10-06 00:00 | Gout | [facility] | + + + + | 2021-10-06 00:00 | Gout | [facility] | + + + + | 2021-11-22 00:00 | Paresthesia of left upper | [facility] | | | extremity | | + + + + | 2021-11-22 00:00 | Paresthesia of left upper | [facility] | | | extremity | | + + + + | 2021-11-22 20:00 | Nicotine dependence, | [facility] | | | unspecified, uncomplicated [facility] | + + + + | 2021-11-22 20:00 | Unspecified asthma, | [facility] | | | uncomplicated [facility] | + + + + | 2021-11-22 20:00 | Gout, unspecified | [facility] | | | [facility] | + + + + | 2021-11-22 20:00 | Paresthesia of skin | [facility] | | | [facility] | + + + + | 2021-11-22 20:00 | Dizziness and giddiness | [facility] | | | [facility] | + + + + | 2021-11-22 20:00 | Allergy status to narcotic | [facility] | | | agent | [facility] | + + + + | 2023-03-08 00:00 | Fracture of left hand | [facility] | + + + + | 2023-03-08 00:00 | Fracture of left hand | [facility] | + + + + | 2023-03-08 13:55 | NICOTINE DEPENDENCE, | [facility] | | | UNSPECIFIED, UNCOMPLICATED | | + + + + | 2023-03-08 13:55 | UNSP FRACTURE OF FIFTH | [facility] | | | METACARPAL BONE, LEFT HAND, | | | | | | + + + + | 2023-03-08 13:55 | UNSP INJURY OF LEFT WRIST, | [facility] | | | HAND AND FINGER(S), INIT | | | | ENCNTR | | + + + + | 2023-03-08 13:55 | FALL SAME LEV FROM | [facility] | | | SLIP/TRIP W STRIKE AGNST | | | | OTH OB | | + + + + | 2023-03-08 13:55 | OTHER VIBRATION ANALYST (CURRENT) | [facility] | | | DRUG THERAPY | | + + + + | 2023-03-08 13:55 | ALLERGY STATUS TO NARCOTIC | [facility] | | | AGENT STATUS | | + + + + | 2023-03-21 08:25 | DISP FX OF NECK OF FIFTH | [facility] | | | METACARPAL BONE | | + + + + | 2023-03-21 11:15 | DISP FX OF NECK OF FIFTH | [facility] | | | METACARPAL BONE | | + + + + Procedures No information. Results/Labs +--------+--------+ +---------+--------+---------+ | test | date | facility | value | unit | notes | +--------+--------+ +---------+--------+---------+ + + | Result panel 1 | + + + + + + + + + | | 2023-03-21 | [facility] | NEGATIVE | (missing) | (missing) | | (unavailable | [facility] | | | | + + + + + + + + + | Result panel 2 | + + + + + + + + + | | 2023-03-21 | [facility] | NEGATIVE | (missing) | (missing) | | (unavailable | [facility]05[facility] | | | | + + + + + + + + + | Result panel 3 | + + + + + + + + + | | 2023-03-21 | [facility] | NEGATIVE | (missing) | (missing) | | (unavailable | [facility] | | | | + + + + + + + + + | Result panel 4 | + + + + + + + + + | | 2023-03-21 | [facility] | NEGATIVE | (missing) | (missing) | | (unavailable | [facility]05[facility] | | | | + + + + + + + + + | Result panel 5 | + + + + + +--------+ + + | | 2023-03-21 | [facility] | 10.9 | (missing) | (missing) | | (unavailable | [facility]12[facility] | | | | + + + +--------+ + + + + | Result panel 6 | + + + + + +--------+ + + | | 2023-03-21 | [facility] | 90.9 | (missing) | (missing) | | (unavailable | [facility]12[facility] | | | | + + + +--------+ + + + + | Result panel 7 | + + + + + +-------+ + + | | 2023-03-21 | [facility] | 6.7 | (missing) | (missing) | | (unavailable | [facility]12[facility] | | | | + + + +-------+ + + + + | Result panel 8 | + + + + + +-------+ + + | | 2023-03-21 | [facility] | 1.5 | (missing) | (missing) | | (unavailable | [facility]12[facility] | | | | + + + +-------+ + + + + | Result panel 9 | + + + + + +-------+ + + | | 2023-03-21 | [facility] | 0.6 | (missing) | (missing) | | (unavailable | [facility]12[facility] | | | | + + + +-------+ + + + + | Result panel 10 | + + + + + +-------+ + + | | 2023-03-21 | [facility] | 0.3 | (missing) | (missing) | | (unavailable | [facility]12[facility] | | | | + + + +-------+ + + + + | Result panel 11 | + + + + + +-------+---------+ + | | 2023-03-21 | [facility] | 118 | mg/dL | (missing) | | (unavailable | [facility]12:07 [facility] | | | | + + + +-------+---------+ + + + | Result panel 12 | + + + + + +------+---------+ + | | 2023-03-21 | [facility] | 19 | mg/dL | (missing) | | (unavailable | [facility]12:07 [facility] | | | | + + + +------+---------+ + + + | Result panel 13 | + + + + + +--------+---------+ + | | 2023-03-21 | [facility] | 0.93 | mg/dL | (missing) | | (unavailable | [facility]12[facility] | | | | + + + +--------+---------+ + + + | Result panel 14 | + + + + + +-------+ + + | | 2023-03-21 | [facility] | 101 | (missing) | (missing) | | (unavailable | [facility]12[facility]07 [facility] | | | | + + + +-------+ + + + + | Result panel 15 | + + + + + +--------+ + + | | 2023-03-21 | [facility] | 4.65 | (missing) | (missing) | | (unavailable | [facility]12[facility] | | | | + + + +--------+ + + + + | Result panel 16 | + + + + + +---------+ + + | | 2023-03-21 | [facility] | 20.43 | (missing) | (missing) | | (unavailable | [facility]12[facility] | | | | + + + +---------+ + + + + | Result panel 17 | + + + + + +-------+ + + | | 2023-03-21 | [facility] | 138 | (missing) | (missing) | | (unavailable | [facility]12[facility]07 [facility] | | | | + + + +-------+ + + + + | Result panel 18 | + + + + + +-------+ + + | | 2023-03-21 | [facility] | 4.1 | (missing) | (missing) | | (unavailable | 14:: [facility] | | | | + + + +-------+ + + + + | Result panel 19 | + + + + + +-------+ + + | | 2023-03-21 | [facility] | 103 | (missing) | (missing) | | (unavailable | 14::07 [facility] | | | | + + + +-------+ + + + + | Result panel 20 | + + + + + +------+ + + | | 2023-03-21 | [facility] | 27 | (missing) | (missing) | | (unavailable | [facility] | | | | + + + +------+ + + + + | Result panel 21 | + + + + + +--------+ + + | | 2023-03-21 | [facility] | 12.1 | (missing) | (missing) | | (unavailable | 14::07 [facility] | | | | + + + +--------+ + + + + | Result panel 22 | + + + + + +-------+---------+ + | | 2023-03-21 | [facility] | 8.4 | mg/dL | (missing) | | (unavailable | [facility] | | | | + + + +-------+---------+ + + + | Result panel 23 | + + + + + +-------+ + + | | 2023-03-21 | [facility] | 6.5 | (missing) | (missing) | | (unavailable | [facility] | | | | + + + +-------+ + + + + | Result panel 24 | + + + + + +-------+ + + | | 2023-03-21 | [facility] | 3.3 | (missing) | (missing) | | (unavailable | [facility] | | | | + + + +-------+ + + + + | Result panel 25 | + + + + + +-------+ + + | | 2023-03-21 | [facility] | 3.2 | (missing) | (missing) | | (unavailable | [facility] | | | | + + + +-------+ + + + + | Result panel 26 | + + + + + +--------+ + + | | 2023-03-21 | [facility] | 14.7 | (missing) | (missing) | | (unavailable | [facility]12[facility]07 [facility] | | | | + + + +--------+ + + + + | Result panel 27 | + + + + + +--------+ + + | | 2023-03-21 | [facility] | 1.03 | (missing) | (missing) | | (unavailable | [facility]12[facility] | | | | + + + +--------+ + + + + | Result panel 28 | + + + + + +-------+ + + | | 2023-03-21 | [facility] | 0.3 | (missing) | (missing) | | (unavailable | [facility]12[facility] | | | | + + + +-------+ + + + + | Result panel 29 | + + + + + +------+ + + | | 2023-03-21 | [facility] | 29 | (missing) | (missing) | | (unavailable | [facility]12[facility] | | | | + + + +------+ + + + + | Result panel 30 | + + + + + +------+ + + | | 2023-03-21 | [facility] | 60 | (missing) | (missing) | | (unavailable | [facility]12[facility] | | | | + + + +------+ + + + + | Result panel 31 | + + + + + +-------+ + + | | 2023-03-21 | [facility] | 103 | (missing) | (missing) | | (unavailable | [facility]12[facility] | | | | + + + +-------+ + + + + | Result panel 32 | + + + + + +--------+ + + | | 2023-03-21 | [facility] | 43.4 | (missing) | (missing) | | (unavailable | [facility]12[facility] | | | | + + + +--------+ + + + + | Result panel 33 | + + + + + +--------+ + + | | 2023-03-21 | [facility] | 93.3 | (missing) | (missing) | | (unavailable | [facility]12[facility] | | | | + + + +--------+ + + + + | Result panel 34 | + + + + + +--------+ + + | | 2023-03-21 | [facility] | 31.5 | (missing) | (missing) | | (unavailable | [facility]12[facility] | | | | + + + +--------+ + + + + | Result panel 35 | + + + + + +--------+ + + | | 2023-03-21 | [facility] | 33.8 | (missing) | (missing) | | (unavailable | [facility]12[facility] | | | | + + + +--------+ + + + + | Result panel 36 | + + + + + +--------+ + + | | 2023-03-21 | [facility] | 14.1 | (missing) | (missing) | | (unavailable | 14::07 [facility] | | | | + + + +--------+ + + + + | Result panel 37 | + + + + + +-------+ + + | | 2023-03-21 | [facility] | 195 | (missing) | (missing) | | (unavailable | [facility] | | | | + + + +-------+ + + + + | Result panel 38 | + + + + + +---------+ + + | | 2023-03-21 | [facility] | 7.415 | (missing) | (missing) | | (unavailable | [facility]40[facility]07 [facility] | | | | + + + +---------+ + + Social History No information. Vital Signs + + + +---------+ | date | measurement | value | units | + + + +---------+ | 2023-03-08 00:00 | BMI | 39.2 | kg/m2 | + + + +---------+ | 2023-03-08 00:00 | BP_diastolic | 95 | mmHg | + + + +---------+ | 2023-03-08 00:00 | BP_systolic | 146 | mmHg | + + + +---------+ | 2023-03-08 00:00 | heart_rate | 70 | /min | + + + +---------+ | 2023-03-08 00:00 | height_metric | 187.96 | cm | + + + +---------+ | 2023-03-08 00:00 | height_standard | 74 | in | + + + +---------+ | 2023-03-08 00:00 | o2_saturation | 98 | % | + + + +---------+ | 2023-03-08 00:00 | respiration_rate | 18 | /min | + + + +---------+ | 2023-03-08 00:00 | temperature_metric | 36.83 | C | | | | | | + + + +---------+ | 2023-03-08 00:00 | | 98.3 | F | | | temperature_standar | | | | | d | | | + + + +---------+ | 2023-03-08 00:00 | weight_metric | 138.4 | kg | + + + +---------+ | 2023-03-08 00:00 | weight_standard | 305.12 | lb | + + + +---------+ | 2023-03-16 00:00 | BMI | 37.9 | kg/m2 | + + + +---------+ | 2023-03-16 00:00 | height_metric | 187.96 | cm | + + + +---------+ | 2023-03-16 00:00 | height_standard | 74 | in | + + + +---------+ | 2023-03-16 00:00 | weight_metric | 134 | kg | + + + +---------+ | 2023-03-16 00:00 | weight_standard | 295.42 | lb | + + + +---------+ | 2023-03-22 00:00 | BP_diastolic | 64 | mmHg | + + + +---------+ | 2023-03-22 00:00 | BP_systolic | 178 | mmHg | + + + +---------+ | 2023-03-22 00:00 | heart_rate | 103 | /min | + + + +---------+ | 2023-03-22 00:00 | o2_saturation | 95 | % | + + + +---------+ | 2023-03-22 00:00 | respiration_rate | 27 | /min | + + + +---------+ | 2023-03-22 00:00 | temperature_metric | 36.11 | C | | | | | | + + + +---------+ | 2023-03-22 00:00 | | 97 | F | | | temperature_standar | | | | | d | | | + + + +---------+"
[~2023-03-21 08:25] MED LIST changes: +LOSARTAN POTASS50 MG PO
[2023-03-21] MEDS ORDERED: HYDROCODON-ACE1 EA10 PO (11:58)
[2023-03-21 12:46] LABS: INFLUENZA B NAA NEGATIVE (NEGATIVE); RESPIRATORY SYNCYTIAL VIR NAA NEGATIVE (NEGATIVE)
--- NOTE | 2023-03-21 13:15 | NUR ---
PT ARRIVES TO ROOM 127 FROM PACU WITH ANESTHESIA AND FRUIT HARVESTER. PT WAS KEPT INTUBATED AFTER ORIF OF LEFT HAND D/T CONCERNS REGARDING AIRWAY/BRONCHOSPASM. PT ARRIVES WITH PROPOFOL DRIP INFUSING. ON ARRIVAL PT IS HAVING COPIOUS AMOUNTS OF SECRETIONS, COUGHING AND GAGGING ON ETT. PROPOFOL INFUSION INCREASED, DOSE OF VERSED 2MG IV WAS ALSO GIVEN.
--- NOTE | 2023-03-21 13:40 | NUR ---
03/21/23 1340 Yessica Rose 1217- PT ARRIVES TO PACU ROOM 10, TITA RT AT BEDSIDE WITH VENTILATOR. PT IS SUPINE WITH 7.5 ET TUBE, 22 AT THE TEETH, PT ON 10L O2 PER BVM. PT IS BEING MEDICATED WITH PROPOFOL FOR SEDATION PER JENIFER ALCALA. DRESSING AND SPLINT TO LEFT WRIST, WNL. ICE FOR EXTREMITY, COLOR AND CAP REFILL NORMAL. 1220- DR KWONG IN ROOM, REPORT RECEIVED FROM JENIFER ALCALA. TITA RT TO PLACE PT ON VENTILATOR. PT REMAINS SEDATED, ALL MONITORS IN PLACE. 1225- PROPOFOL DRIP STARTED AT 50 MCG/KG/MIN (136 KG) FOR SEDATION PER JENIFER ALCALA. 1230- BP 77/47, PROPOFOL DECREASED TO 30 MCG/KG/MIN. 1235- XRAY IN ROOM. PT TO BE MOVED TO ICU. 1240- IAN ALCALA TO GO WITH PT TO ICU, PT BEING BAGGED VIA BVM. PT MOVING BOTH HANDS, PROPOFOL BOLUS GIVEN PER IAN. CONTINUE TO MONITOR PT WHILE TRAVELING TO ICU, VITAL SIGNS REMAIN STABLE. PT COUGHING INTERMITTENTLY.
[2023-03-21 14:18] LABS: PH, VENOUS 7.369 (7.31-7.41)
[2023-03-21 14:19] LABS: BASOPHILS 0.3 % (0-2); EOSINOPHILS 0.6 % (0-6); HEMATOCRIT 43.4 % (35.0-50.0); HEMOGLOBIN 14.7 g/dL (12.0-18.0); LYMPHOCYTES 6.7 % (24-44); MCH 31.5 (27-36); MCHC 33.8 g/dl (30-36); MCV 93.3 fl (81-99); MONOCYTES 1.5 % (0-12); NEUTROPHILS 90.9 % (39-80); PLATELET COUNT 195 K/uL (140-440); RBC 4.65 M/ul (4.3-5.7); RDW 14.1 (10.5-15.0)
[2023-03-21 14:35] LABS: ALBUMIN 3.3 g/dL (3.4-5.0); ALBUMIN/GLOBULIN RATIO 1.03 (1.1-2.4); ANION GAP 12.1 (7-21); BILIRUBIN, TOTAL 0.3 ng/dL (0.2-1.0); BUN/CREATININE RATIO 20.43 (6.0-28.6); CALCIUM 8.4 mg/dL (8.5-10.1); CREATININE, SERUM 0.93 mg/dL (0.70-1.30); POTASSIUM 4.1 mmol/L (3.5-5.1); PROTEIN, TOTAL 6.5 g/dL (6.4-8.2)
--- NOTE | 2023-03-21 15:05 | NUR ---
PT HAS NOT BEEN TOLERATING ETT VERY WELL, SEDATION HAS BEEN TITRATED UP, PROPOFOL DRIP NOW AT 70MCG/KG/MIN. PT IS CALM AND RESTFUL WITH RASS -4 FOR PERIODS AND THEN WILL SUDDENLY BECOME IRRITATED WITH TUBE AND START GAGGING AND COUGHING, DOES NOT FOLLOW COMMANDS, TRIES TO REACH FOR TUBE WITH HANDS, REQUIRING SEVERAL STAFF TO RESTRAIN HIM TO KEEP HIM FROM PULLING TUBE OUT. DOSES OF VERSED GIVEN X2, DISCUSSION WITH MD REGARDING SEDATION, WILL ADD PRECEDEX DRIP. PT IS VENTILATING WELL ON VENT WHEN HE IS CALM, NO ISSUES, O2 HAS BEEN TITRATED DOWN. AT TIMES WITH AGITATION PEAK INSPIRATORY PRESSURES WILL RISE TO 30'S, BUT OVERALL 20'S WHILE PT IS CALM. PTS LUNGS HAVE RHONCHI ON RIGHT SIDE, OCCASIONAL SMALL WHEEZES HEARD. ALL THIS CLEARS WITH SUCTIONING, SUCTIONING DONE OF ETT- MODERATE AMOUNTS OF WHITE SECRETIONS NOTED. WHILE PT IS AGITATED, COPIOUS AMOUNTS OF CLEAR ORAL SECRETIONS ARE PRODUCED, ORAL SUCTIONING IS NEEDED AT THESE TIMES WELL ETT SUCTIONING. SOFT WRIST RESTRAINTS IN PLACE AND 1-2 RNS REMAIN AT BEDSIDE.
--- NOTE | 2023-03-21 15:20 | NUR ---
ALBUTEROL NEB TX DONE TO SEE IF IT AFFECTS PTS PEAK INSP PRESSURES, SLIGHT CHANGE NOTED, NO WHEEZE HEARD, NO CHANGE IN RHONCHI ON RIGHT.
--- NOTE | 2023-03-21 15:25 | NUR ---
PATIENT IS ON THE VENT. S/P RESP. DISTRESS ON THE OR. PATIENT SEDATED AND UNABLE TO ANSWER QUESTIONS AT THIS TIME. IS AT BEDSIDE.
[2023-03-21 17:45] LABS: PH, VENOUS 7.415 (7.31-7.41)
--- NOTE | 2023-03-21 18:00 | NUR ---
PT CONT ON PROPOFOL AT 15MCG/KG/MIN AND PRECEDEX AT 0.4 MCG/KG/HR. PT IS RESTING AT THIS TIME. RT TITA HAS JUST EVALUATED PT ON VENT, DISCUSSION WITH MD AND PLAN TO EXTUBATE PT WITH CONTENT ENGINEER PRESENT WITHIN THE NEXT HOUR. RN AT BEDSIDE TO MONITOR ETT/LINES. PT IS RASS -4 TO +4 AT TIMES. SPO2 IS 94% ON 30% FIO2.
--- NOTE | 2023-03-21 19:11 | NUR ---
CALL TO DR TRAN TO UPDATE ON EVENTS OF THE AFTERNOON AND EXTUBATION OF PT. ORDER GIVEN FOR HAND XRAY.
--- NOTE | 2023-03-21 19:25 | NUR ---
PT HAS BEEN EXTUBATED WITH UTILIZATION MANAGER ON STANDBY, NOW PERFORMING NERVE BLOCK ON HAND. PT ALERT AND ORIENTED, NO RESP DISTRESS NOTED, RT HAS BEEN IN ROOM WELL.
--- NOTE | 2023-03-22 | NUR ---
PATIENT IS RESTING IN BED. NO COMPLAINTS OF PAIN AT THIS TIME. SLING IS IN PLACE
[2023-03-22 02:00] VITALS: BP 142/62
--- NOTE | 2023-03-22 02:00 | NUR ---
PATIENT IS RESTING IN BED.
[2023-03-22 03:00] VITALS: BP 133/63
[2023-03-22 04:00] VITALS: BP 135/63
--- NOTE | 2023-03-22 06:15 | NUR ---
XRAY IN PATIENT'S ROOM TO DO A 1 VIEW CHEST.
--- NOTE | 2023-03-22 07:30 | NUR ---
REPORT RECEIVED. PARRIS HANNA HERE TO SEE PATIENT. PATIENT IS AWAKE AND ALERT. C/O PAIN IN LEFT HAND. RATES 3/10. SLING TO LEFT UPPER EXTREMITY ON. ABLE TO MOVE FINGERS ON LEFT HAND W/O DIFFICULTY. NO DELAY IN CMS. OZUNA CATH PATENT. DENIES SHORTNESS OF BREATH. O2 SAT ON ROOM AIR 93-94.
--- NOTE | 2023-03-22 07:45 | NUR ---
OOB TO CHAIR. MOVING WELL W/O ASSIST. SL X 2 INTACT.
[2023-03-22] MEDS ORDERED: DOXYCYCLINE HY100 MG PO (08:06)
[2023-03-22] MEDS ORDERED: AMOX TR-K CLV1 EAC1 PO (08:06)
[2023-03-22] MEDS ORDERED: ZANAFLEX4 MG PO (08:09)
[2023-03-22] MEDS ORDERED: PHENTERMINE HCL30 MG PO (08:10)
--- NOTE | 2023-03-22 08:10 | NUR ---
MED REC COMPLETE
[2023-03-22 08:31] VITALS: BP 178/64
--- NOTE | 2023-03-22 08:31 | NUR ---
THE PATIENT'S DISCHARGE PLAN WILL BE THAT THE PATIENT WILL DISCHARGE TO HOME. PATIENT HAS FRIENDS AND FAMILY THAT WILL HELP NEEDED. PATIENT'S DEMOGRAPHICS ARE CORRECT. PATIENT CAN DO HIS OWN ADLS AND PATIENT STILL DRIVES HIS OWN CAR.PATIENT DOES NOT OWN OR NEED DME. PATIENT EXTUBATED LAST NIGHT AND IS DOING WELL. THE PATIENT WILL BE DC'd HOME TODAY.
--- NOTE | 2023-03-22 09:00 | NUR ---
TOOK BREAKFAST WELL. DISCHARGE ORDERS RECEIVED. PATIENT DENIES NEED FOR PAIN PAIN MEDICATION. PATIENT UP GETTING DRESSED. NO ASSISTED NEEDED. STABLE ON FEET.
--- NOTE | 2023-03-22 09:00 | NUR ---
IV X2 REMOVED, OZUNA REMOVED. PATIENT IN BR FOR VOID, PATIENT NOTED 4-5 SMALL DROPS OF BLOOD WITH URINATION. D/C VITALS CHARTED. PATIENT DRESSED IN PERSONAL CLOTHING, PATIENT ABLE TO DRESS HIMSELF, NEEDING ASSISTANCE ONLY WITH FASTENING SHORTS.
--- NOTE | 2023-03-22 09:10 | NUR ---
DISCHARGE INSTRUCTIONS GIVEN WITH PATIENT UNDERSTANDING.
--- NOTE | 2023-03-22 09:20 | NUR ---
DISCHARGED TO HOME. PATIENT DISCHARGED VIA W/C ACCOMP BY RN. PATIENT MOTHER TAKING PATIENT HOME.
--- NOTE | 2023-03-23 08:14 | OR ---
[facility] [address], [place] [address] Signed DATE OF OPERATION: 03/21/2023 SURGEON: Kathy Quiñonez MD PREOPERATIVE DIAGNOSIS: Displaced angulated 5th metacarpal fracture, left. POSTOPERATIVE DIAGNOSIS: Displaced angulated 5th metacarpal fracture, left. PROCEDURE PERFORMED: Open reduction and internal fixation of left 5th metacarpal. FITTING ROOM OPERATOR: None. ANESTHESIA: General. TOURNIQUET TIME: 18 minutes. IMPLANTS: Arthrex 4.0 headless screw, 32 length. BRIEF HISTORY: Dante is a 48-year-old gentleman, who suffered a fracture of his 5th metacarpal with displacement and angulation. Risks and benefits of operative treatment were discussed with him and he elected to proceed. DESCRIPTION OF PROCEDURE: Once consent was obtained, he was taken to the operating room. After adequate anesthesia, he was placed on the operating table and a tourniquet was placed in the arm. The arm was prepped and draped in a standard sterile fashion. The arm was exsanguinated using Esmarch bandage. Tourniquet inflated to 200 mmHg. The fracture was reduced using a percutaneous tenaculum. It was then held in position while a guidewire was advanced with the finger flexed from the metacarpal head proximally across the fracture engaging the body of the metacarpal. This was then overdrilled using a 3.2 drill. The 32 screw was found to be the right length, it was placed over the guidewire and advanced until was under good compression and buried in the metacarpal head. The Electronically Signed By: KATHY QUIÑONEZ MD 03/23/23 0814 PATIENT NAME: DANTE HERNANDES OPERATIVE REPORT DATE OF : 75 REPORT #: [id number] PHYSICIAN: KATHY QUIÑONEZ MD PCP: AMARILIS FAY DO REPORT IS CONFIDENTIAL AND NOT TO BE RELEASED WITHOUT AUTHORIZATION [facility] [address] [place] [address], [place] [address] Signed final radiograph showed good reduction and good alignment. His finger rotation was normal. The wound was copiously irrigated with antibiotic solution. The guidewire was removed and the skin was closed using 3-0 Monocryl and the wound was sealed with LiquiBand and Steri-Strips. He was dressed with a sterile dressing and placed in an ulnar gutter splint. He tolerated the procedure well. All sponge, needle, and instrument counts were correct. Kathy Quiñonez MD BA/MODL /[id number] Copies: ~ Electronically Signed By: KATHY QUIÑONEZ MD 03/23/23 0814 PATIENT NAME: DANTE HERNANDES OPERATIVE REPORT DATE OF : 75 REPORT #: [id number] PHYSICIAN: KATHY QUIÑONEZ MD PCP: AMARILIS FAY DO REPORT IS CONFIDENTIAL AND NOT TO BE RELEASED WITHOUT AUTHORIZATION
== END 2023-03-22 09:17 | disposition home or self-care (01) ==
LOC: DS 08:25 → CCU 13:10 → DS 14:16 → CCU 14:17 → DS 03-22 09:17 → CCU 03-22 09:17 → DS 03-22 10:24
PROVIDERS: Family Medicine; Nurse Anesthetist, Certified Registered; ADMIT Specialist; ATTEND Specialist
PROC: 3E0T3BZ Introduction of Anesthetic Agent into Peripheral Nerves and Plexi, Percutaneous Approach (ICD-10-PCS; 2023-03-21)
PROC: 0PSQ04Z Reposition Left Metacarpal with Internal Fixation Device, Open Approach (ICD-10-PCS; principal; 2023-03-21 11:15)
DX: S62.307A Unspecified fracture of fifth metacarpal bone, left hand, initial encounter for closed fracture (principal); Z20.822 Contact with and (suspected) exposure to COVID-19; J98.01 Acute bronchospasm; K21.9 Gastro-esophageal reflux disease without esophagitis; M10.9 Gout, unspecified; M54.9 Dorsalgia, unspecified; G89.29 Other chronic pain; J96.01 Acute respiratory failure with hypoxia; T40.425A Adverse effect of tramadol, initial encounter
CPT/HCPCS: 01830; 36415; 64417; 71045; 73130; 73140; 76942; 80053; 82803; 85025; 87502; 94002; 94640; 96374; 96375; C1713; G0378; J0690; J1100; J1200; J1720; J2001; J2250; J2704; J2795; J2930; J3490; J7121; U0002

== ENCOUNTER 2024-03-30 21:26 | Emergency (ER) | payer BC ==
[~2024-03-30] VITALS: Ht 188 cm; Wt 137.8 kg
[~2024-03-30 21:26] MED LIST changes: +AMOX TR-K CLV1 EAC1 PO; +DOXYCYCLINE HY100 MG PO; +HYDROCODON-ACE1 EA10 PO; +PHENTERMINE HCL30 MG PO; +ZANAFLEX4 MG PO
[2024-03-30] MEDS ORDERED: ondansetron HCL 4 MG/2 ML VIAL IV ONE (21:45)
[2024-03-30] MEDS ORDERED: FAMOTIDINE 20 MG/ 2 ML VIAL IV ONE (21:45)
[2024-03-30] MEDS ORDERED: LACTATED RINGER'S 1,000 ML IV SCH (21:45)
[2024-03-30] MEDS ORDERED: NITROGLYCERIN 0.4 MG SUBL SL PRN (21:45)
[2024-03-30 21:54] LABS: BASOPHILS 0.7 % (0-2); EOSINOPHILS 1.6 % (0-6); HEMATOCRIT 45.2 % (35.0-50.0); HEMOGLOBIN 15.7 g/dL (12.0-18.0); LYMPHOCYTES 19.4 % (24-44); MCH 31.9 (27-36); MCHC 34.8 g/dl (30-36); MCV 91.9 fl (81-99); MONOCYTES 9.5 % (0-12); NEUTROPHILS 68.8 % (39-80); PLATELET COUNT 194 K/uL (140-440); RBC 4.92 M/ul (4.3-5.7); RDW 13.6 (10.5-15.0)
[2024-03-30 22:12] LABS: ALBUMIN 3.6 g/dL (3.4-5.0); ALBUMIN/GLOBULIN RATIO 1.09 (1.1-2.4); ANION GAP 14.9 (7-21); BILIRUBIN, TOTAL 0.5 ng/dL (0.2-1.0); BUN/CREATININE RATIO 17.82 (6.0-28.6); CALCIUM 8.8 mg/dL (8.5-10.1); CREATININE, SERUM 1.01 mg/dL (0.70-1.30); MAGNESIUM 1.9 mg/dL (1.8-2.4); POTASSIUM 3.9 mmol/L (3.5-5.1); PROTEIN, TOTAL 6.9 g/dL (6.4-8.2)
[2024-03-31] MEDS ORDERED: LIDOCAINE & ANTACID 35 ML BTL PO ONE (00:45)
[2024-03-31] MEDS ORDERED: OMEPRAZOLE20 MG PO (00:53)
[2024-03-31 01:03] VITALS: BP 151/73
--- NOTE | 2024-04-01 18:40 | EKG ---
[facility] [address] [facility] [place] [address] Signed Normal sinus rhythm Inferior infarct , age undetermined ST \T\ T wave abnormality, consider lateral ischemia Abnormal ECG When compared with ECG of 22-NOV-2021 20:57, T wave inversion now evident in Lateral leads Confirmed by Donal Murray MD ([id number]) on 04/01/2024 6:40:05 PM Electronically Signed By: DONAL MURRAY MD 04/01/24 1840 PATIENT NAME: TOOTIE HERNANDES GEE Electrocardiogram DATE OF : 75 PHYSICIAN: DONAL MURRAY MD REPORT #: [id number] REPORT IS CONFIDENTIAL AND NOT TO BE RELEASED WITHOUT AUTHORIZATION
== END 2024-03-31 01:04 | disposition home or self-care (01) ==
LOC: ED 21:26
PROVIDERS: Internal Medicine
DX: K21.9 Gastro-esophageal reflux disease without esophagitis (principal); I10 Essential (primary) hypertension; M10.9 Gout, unspecified; J45.909 Unspecified asthma, uncomplicated; F17.200 Nicotine dependence, unspecified, uncomplicated; Z88.5 Allergy status to narcotic agent; Z88.4 Allergy status to anesthetic agent; Z91.018 Allergy to other foods; Z79.899 Other long term (current) drug therapy
CPT/HCPCS: 36415; 71045; 80053; 83735; 83880; 84484; 85025; 93005; 93010; 96374; 96375; 99285-25; J2405; J7121

== ENCOUNTER 2024-08-19 07:58 | Emergency (ER) | payer BC ==
[~2024-08-19] VITALS: Ht 188 cm; Wt 137.9 kg
[2024-08-19] MEDS ORDERED: AMLODIPINE BESY10 MG PO (08:11)
[2024-08-19] MEDS ORDERED: LOSARTAN POTAS100 MG PO (08:12)
[2024-08-19 08:14] LABS: BASOPHILS 1.2 % (0-2); EOSINOPHILS 2.5 % (0-6); LYMPHOCYTES 25.6 % (24-44); MCH 31.9 (27-36); MCHC 34.1 g/dl (30-36); MCV 93.5 fl (81-99); MONOCYTES 7.5 % (0-12); NEUTROPHILS 63.2 % (39-80); PLATELET COUNT 208 K/uL (140-440); RBC 5.34 M/ul (4.3-5.7); RDW 13.7 (10.5-15.0)
[2024-08-19] MEDS ORDERED: ASPIRIN 81 MG CHEW PO ONE (08:15)
[2024-08-19] MEDS ORDERED: KETOROLAC TROMETHAMINE 30 MG/ML VIAL IV ONE (08:30)
[2024-08-19 08:31] LABS: ALBUMIN 3.8 g/dL (3.4-5.0); ALBUMIN/GLOBULIN RATIO 0.97 (1.1-2.4); ANION GAP 12.7 (7-21); BILIRUBIN, TOTAL 0.7 ng/dL (0.2-1.0); CALCIUM 8.8 mg/dL (8.5-10.1); CREATININE, SERUM 0.88 mg/dL (0.70-1.30); MAGNESIUM 2.1 mg/dL (1.8-2.4); POTASSIUM 4.7 mmol/L (3.5-5.1); PROTEIN, TOTAL 7.7 g/dL (6.4-8.2)
[2024-08-19 10:08] VITALS: BP 141/68
--- NOTE | 2024-08-19 21:45 | EKG ---
[facility] [address] [facility] [place] [address] Signed Normal sinus rhythm Normal ECG When compared with ECG of 30-MAR-2024 21:32, No significant change was found Confirmed by Martha Lam MD () on 08/19/2024 9:45:29 PM Electronically Signed By: MARTHA LAM MD [id number] PATIENT NAME: TOOTIE HERNANDES GEE Electrocardiogram DATE OF : 75 PHYSICIAN: MARTHA LAM MD REPORT #: [id number] REPORT IS CONFIDENTIAL AND NOT TO BE RELEASED WITHOUT AUTHORIZATION
== END 2024-08-19 10:10 | disposition home or self-care (01) ==
LOC: ED 07:58
PROVIDERS: Emergency Medicine
DX: R07.89 Other chest pain (principal); M10.9 Gout, unspecified; J45.909 Unspecified asthma, uncomplicated; I10 Essential (primary) hypertension; F17.200 Nicotine dependence, unspecified, uncomplicated; Z88.5 Allergy status to narcotic agent; Z91.018 Allergy to other foods; Z79.899 Other long term (current) drug therapy
CPT/HCPCS: 36415; 71045; 80053; 83735; 84484; 85025; 85379; 93005; 93010; 96374; 99285-25; A9270; J1885